=== PATIENT | female | born 1970 | race Caucasian/White ===

== ENCOUNTER 2017-06-15 08:59 | Day surgery (SDC) | payer MEDICARE, OTHER ==
[2017-06-11 13:09] VITALS: BMI 24.4
[~2017-06-15 08:59] MED LIST: LACTATED RINGERS 1,000 ML IV SCH
[2017-06-15 10:26] VITALS: TEMP 96.5
[2017-06-15] MEDS ORDERED: LIDOCAINE 1% 20 ML VIAL (10MG/ML) FOR IV START INTRADERMA ONE (10:27)
[2017-06-15] MEDS ORDERED: LIDOCAINE 1% INJ 10MG/ML (20 ML MDV) ONE (11:07)
[2017-06-15] MEDS ORDERED: PROPOFOL 10 MG/ML 20 ML VIAL IV ONE (11:07)
[2017-06-15] MEDS ORDERED: GLUCAGON 1 MG/ML VIAL ONE (11:07)
--- NOTE | 2017-06-15 11:21 | P.GSHP ---
History of Present Illness H&P Date: 06/15/17 Chief Complaint: GERD, colitis This a 47-year-old female referred . Aolndra Silva. Patient rents today for EGD colonoscopy. She's had issues with GERD and diarrhea. Past Medical History Past Medical History: Musculoskeletal Disorder, Seizure Disorder, Thyroid Disorder Additional Past Medical History / Comment(s): seizures as a child-nothing in years, cerebral palsy, recent hospitalization @[facility] for uncontrollable diarrhea, better now but still loose stools, bloating, burping, occasional vomiting History of Any Multi-Drug Resistant Organisms: None Reported Past Surgical History: Orthopedic Surgery Additional Past Surgical History / Comment(s): wrist surg & other surg. related to contractures Past Anesthesia/Blood Transfusion Reactions: No Reported Reaction, Family History of Problems w/ Anesthesia Additional Past Anesthesia/Blood Transfusion Reaction / Comment(s): mother had issues w/waking up from anesthesia Smoking Status: Never smoker - Past Family History Mother Family Medical History: Cancer Medications and Allergies Home Medications Medication Instructions Recorded Confirmed Type Cholecalciferol [Vitamin D3] 2,000 unit PO DAILY 06/11/17 06/15/17 History DULoxetine HCL [Cymbalta] 60 mg PO DAILY 06/11/17 06/15/17 History Fluocinonide 0.05% [Lidex 0.05% 15 applic TOPICAL DAILY PRN 06/11/17 06/15/17 History cream] Gabapentin [Neurontin] 100 mg PO BID 06/11/17 06/15/17 History Gabapentin [Neurontin] 300 mg PO BID 06/11/17 06/11/17 History HYDROcodone/APAP 7.5-325MG [[place] 1 tab PO Q8H PRN 06/11/17 06/11/17 History 7.5-325] Levothyroxine Sodium [Synthroid] 50 mcg PO DAILY 06/11/17 06/15/17 History Loratadine [Claritin] 10 mg PO DAILY 06/11/17 06/15/17 History Magnesium Gluconate [Magonate] 500 mg PO DAILY 06/11/17 06/15/17 History Naproxen [Naprosyn] 500 mg PO Q12HR 06/11/17 06/11/17 History tiZANidine [Zanaflex] 2 - 4 mg PO Q6HR PRN 06/11/17 06/11/17 History traZODone HCL 50 - 100 mg PO HS 06/11/17 06/15/17 History Allergies Allergy/AdvReac Type Severity Reaction Status Date / Time No Known Allergies Allergy Verified 06/11/17 11:46 Surgical - Exam Vital Signs Temp Pulse Resp BP Pulse Ox 96.5 F L 72 16 101/75 99 06/15/17 10:02 06/15/17 10:02 06/15/17 10:02 06/15/17 10:02 06/15/17 10:02 - General well developed, no distress - Eyes PERRL - ENT normal pinna - Neck no masses - Respiratory normal expansion - Cardiovascular Rhythm: regular - Abdomen Abdomen: soft, non tender Assessment and Plan Plan: GERD, diarrhea. We'll perform EGD colonoscopy.
--- NOTE | 2017-06-15 11:47 | P.OP ---
Date of Procedure: 06/15/17 Preoperative Diagnosis: GERD Colitis Postoperative Diagnosis: Antral gastritis Hiatal hernia Esophagitis Normal colon pathology pending rectal biopsy Procedure(s) Performed: EGD Colonoscopy Anesthesia: MAC Surgeon: Bertrand Ken Pathology: other (Antrum, esophagus, rectum) Condition: stable Disposition: PACU Description of Procedure: The patient's placed on the endoscopy table in the lateral position. She received IV sedation. The gastroscope placed oropharynx and passed in the esophagus and stomach. Scope was placed through the pylorus. The first and second portion of the duodenum. . Scope summer back the antrum and this appeared mildly inflamed. Biopsies performed. The scope was unretroflexed and remainder stomach appeared normal. There was a hiatal hernia visualized. The GE junction was at 40 cm. The distal esophagus appeared mildly inflamed a biopsies performed. The proximal esophagus appeared normal. Scope was withdrawn. Next digital rectal exam was performed which revealed a few external hemorrhoids. The flexible colonoscope was then placed patient anus passed throughout the colon. The ileocecal valve was not visualized well due to tortuosity valve. This point scope was brought back in the right colon appeared normal. Chest: . The descending and; was normal. Scope was then brought back the rectum and this appeared normal. However due the patient's symptoms of diarrhea a random biopsies performed. Scope was withdrawn for patient.
[2017-06-15 12:20] VITALS: BP 121/70; PULSE 88; RESP 18
== END 2017-06-15 12:38 | disposition home or self-care (01) ==
LOC: ORWHC2ENDO 08:59
PROVIDERS: ATTEND Surgery
DX: K21.0 Gastro-esophageal reflux disease with esophagitis (principal); K29.50 Unspecified chronic gastritis without bleeding; K29.60 Other gastritis without bleeding; K44.9 Diaphragmatic hernia without obstruction or gangrene; K52.9 Noninfective gastroenteritis and colitis, unspecified; K62.1 Rectal polyp; K64.4 Residual hemorrhoidal skin tags; G40.909 Epilepsy, unspecified, not intractable, without status epilepticus; E07.9 Disorder of thyroid, unspecified; Z79.899 Other long term (current) drug therapy
CPT/HCPCS: 81025; 88305; 88342; 45380; 43239; J1610; J2001; J2704

== ENCOUNTER 2020-02-01 16:21 | Emergency (ER) | payer MEDICARE, OTHER ==
[2020-02-01 16:32] VITALS: RESP 18; TEMP 98
--- NOTE | 2020-02-01 17:15 | ED ---
Extremity Problem HPI - General Chief complaint: Extremity Problem,Nontraumatic Stated complaint: swollen lower extremity Time Seen by Provider: 02/01/20 16:58 Source: patient, family Mode of arrival: wheelchair Limitations: physical limitation - History of Present Illness Initial comments: Patient is a 50-year-old female with history of cerebral palsy presenting to emergency Department with chief complaint of right leg swelling. Patient reports she typically ambulates on her knees with kneepads. Patient reports about 4 weeks ago as she was going from the couch the floor she accidentally dropped her usual. However, patient states about a week after she developed gradual swelling of the right knee along with edema in the right lower extremity as well. Patient states she saw her primary care about 2 weeks ago who gave her a prescription of steroids with no significant improvement. Patient reports the right knee is slightly more swollen than usual but the pain is only about a 2. States she has not been able to ambulate due to the swelling. Denies any night sweats fevers or chills at home. No previous history of blood clots. No cough shortness of breath nausea vomiting diarrhea. - Related Data Home Medications Medication Instructions Recorded Confirmed Cholecalciferol [Vitamin D3] 2,000 unit PO DAILY 06/11/17 06/15/17 DULoxetine HCL [Cymbalta] 60 mg PO DAILY 06/11/17 06/15/17 Fluocinonide 0.05% [Lidex 0.05% 15 applic TOPICAL DAILY PRN 06/11/17 06/15/17 cream] Gabapentin [Neurontin] 100 mg PO BID 06/11/17 06/15/17 Gabapentin [Neurontin] 300 mg PO BID 06/11/17 06/11/17 HYDROcodone/APAP 7.5-325MG [[place] 1 tab PO Q8H PRN 06/11/17 06/11/17 7.5-325] Levothyroxine Sodium [Synthroid] 50 mcg PO DAILY 06/11/17 06/15/17 Loratadine [Claritin] 10 mg PO DAILY 06/11/17 06/15/17 Magnesium Gluconate [Magonate] 500 mg PO DAILY 06/11/17 06/15/17 Naproxen [Naprosyn] 500 mg PO Q12HR 06/11/17 06/11/17 tiZANidine [Zanaflex] 2 - 4 mg PO Q6HR PRN 06/11/17 06/11/17 traZODone HCL 50 - 100 mg PO HS 06/11/17 06/15/17 Allergies Allergy/AdvReac Type Severity Reaction Status Date / Time No Known Allergies Allergy Verified 02/01/20 16:32 Review of Systems ROS Statement: Those systems with pertinent positive or pertinent negative responses have been documented in the HPI. ROS Other: All systems not noted in ROS Statement are negative. Past Medical History Past Medical History: Musculoskeletal Disorder, Seizure Disorder, Thyroid Disorder Additional Past Medical History / Comment(s): cerebral palsy History of Any Multi-Drug Resistant Organisms: None Reported Past Surgical History: Orthopedic Surgery Additional Past Surgical History / Comment(s): wrist surg & other surg. related to contractures Past Anesthesia/Blood Transfusion Reactions: No Reported Reaction, Family History of Problems w/ Anesthesia Additional Past Anesthesia/Blood Transfusion Reaction / Comment(s): mother had issues w/waking up from anesthesia Past Psychological History: No Psychological Hx Reported Smoking Status: Never smoker Past Alcohol Use History: None Reported Past Drug Use History: None Reported - Past Family History Mother Family Medical History: Cancer General Exam Limitations: physical limitation General appearance: alert, in no apparent distress Head exam: Present: atraumatic, normocephalic, normal inspection Eye exam: Present: normal appearance Pupils: Present: normal accommodation ENT exam: Present: normal exam Neck exam: Present: normal inspection, full ROM Respiratory exam: Present: normal lung sounds bilaterally Cardiovascular Exam: Present: regular rate, normal rhythm, normal heart sounds Extremities exam: Present: full ROM, tenderness (Mild tenderness with palpation. No pain out of proportion to touch or movement.), normal capillary refill, calf tenderness (Right lower extremity.), other (+2 dorsalis pedis and posterior tibialis.). Absent: normal inspection (+2 right lower extremity edema. Slightly erythematous right knee with mild to moderate swelling.) Course Vital Signs 02/01/20 02/01/20 16:23 18:28 Temperature 98.0 F Pulse Rate 104 H 94 Respiratory 18 18 Rate Blood Pressure 127/62 140/83 O2 Sat by Pulse 95 98 Oximetry Medical Decision Making - Medical Decision Making Patient is a 50-year-old female with history of cerebral palsy presenting to the emergency department with a chief complaint of right knee swelling. She ambulates using her knees with kneepads. This is benign one for many years. Her recent symptoms of the swelling with gradual increase of developed for the past 3 weeks. Possible traumatic injury about a week prior to onset of symptoms. CBC and CMP are unremarkable. CRP at 27. No pain out of proportion. Low suspicion for septic arthritis. Ultrasound was able to rule out a DVT. D-dimer obtained by accident. No chest pain or shortness of breath X-ray of the right knee shows a patellar tendon rupture. Patient was placed in a knee immobilizer. I spoke with neck pain from orthopedic associates who reviewed the images and states they will see her in an outpatient setting. Return parameters were thoroughly discussed patient is understanding and agreeable. Case discussed with physician. - Lab Data Result diagrams: 02/01/20 17:15 02/01/20 17:15 Lab Results 02/01/20 02/01/20 02/01/20 Range/Units 17:15 17:15 17:15 WBC 7.8 (3.8-10.6) k/uL RBC 3.89 (3.80-5.40) m/uL Hgb 11.2 L (11.4-16.0) gm/dL Hct 35.3 (34.0-46.0) % MCV 90.7 (80.0-100.0) fL MCH 28.9 (25.0-35.0) pg MCHC 31.8 (31.0-37.0) g/dL RDW 14.3 (11.5-15.5) % Plt Count 433 (150-450) k/uL Neutrophils % 57 % Lymphocytes % 28 % Monocytes % 7 % Eosinophils % 5 % Basophils % 1 % Neutrophils # 4.5 (1.3-7.7) k/uL Lymphocytes # 2.2 (1.0-4.8) k/uL Monocytes # 0.6 (0-1.0) k/uL Eosinophils # 0.4 (0-0.7) k/uL Basophils # 0.0 (0-0.2) k/uL Hypochromasia Slight D-Dimer 1.36 H (<0.60) mg/L FEU Sodium 139 (137-145) mmol/L Potassium 4.8 (3.5-5.1) mmol/L Chloride 102 (98-107) mmol/L Carbon Dioxide 29 (22-30) mmol/L Anion Gap 8 mmol/L BUN 11 (7-17) mg/dL Creatinine 0.66 (0.52-1.04) mg/dL Est GFR (CKD-EPI)AfAm >90 (>60 ml/min/1.73 sqM) Est GFR (CKD-EPI)NonAf >90 (>60 ml/min/1.73 sqM) Glucose 99 (74-99) mg/dL Calcium 9.3 (8.4-10.2) mg/dL Total Bilirubin 0.2 (0.2-1.3) mg/dL AST 25 (14-36) U/L ALT 13 (4-34) U/L Alkaline Phosphatase 86 (38-126) U/L C-Reactive Protein 27.7 H (<10.0) mg/L Total Protein 7.4 (6.3-8.2) g/dL Albumin 4.1 (3.5-5.0) g/dL Disposition Clinical Impression: Rupture of right patellar tendon Disposition: HOME SELF-CARE Condition: Stable Instructions (If sedation given, give patient instructions): Patella Tendon Repair (DC), Tendon Rupture (ED) Additional Instructions: Follow-up with orthopedics. Return to emergency department if symptoms worsen. Alternate between Tylenol and Motrin for pain control. Keep the leg elevated and apply ice compresses to minimize symptoms. Is patient prescribed a controlled substance at d/c from ED?: No Referrals: Alondra Silva DO [Primary Care Provider] - 1-2 days Jefry Qureshi MD [STAFF PHYSICIAN] - 1-2 days Time of Disposition: 19:08
[2020-02-01 17:25] LABS: Basophils % (A) 1 %; Eosinophils # (A) 0.4 k/uL (0-0.7); Eosinophils % (A) 5 %; HCT 35.3 % (34.0-46.0); HGB 11.2 gm/dL (11.4-16.0); Hypochromasia Slight; Lymphocytes # (A) 2.2 k/uL (1.0-4.8); Lymphocytes % (A) 28 %; MCH 28.9 pg (25.0-35.0); MCHC 31.8 g/dL (31.0-37.0); MCV 90.7 fL (80.0-100.0); Mean Platelet Volume 8.3; Monocytes # (A) 0.6 k/uL (0-1.0); Monocytes % (A) 7 %; Neutrophils # (A) 4.5 k/uL (1.3-7.7); Neutrophils % (A) 57 %; Platelet Count 433 k/uL (150-450); RBC 3.89 m/uL (3.80-5.40); RDW 14.3 % (11.5-15.5); WBC 7.8 k/uL (3.8-10.6)
[2020-02-01 17:38] LABS: ALT 13 U/L (4-34); AST 25 U/L (14-36); African American GFR (CKD) >90 (>60 ml/min/1.73 sqM); Albumin 4.1 g/dL (3.5-5.0); Alkaline Phosphatase 86 U/L (38-126); Anion Gap 8 mmol/L; Blood Urea Nitrogen 11 mg/dL (7-17); C Reactive Protein 27.7 mg/L (<10.0); Calcium 9.3 mg/dL (8.4-10.2); Carbon Dioxide 29 mmol/L (22-30); Chloride 102 mmol/L (98-107); Glucose 99 mg/dL (74-99); Non-African American GFR(CKD) >90 (>60 ml/min/1.73 sqM); Potassium 4.8 mmol/L (3.5-5.1); Sodium 139 mmol/L (137-145); Total Bilirubin 0.2 mg/dL (0.2-1.3); Total Protein 7.4 g/dL (6.3-8.2)
--- NOTE | 2020-02-01 17:42 | XR ---
EXAMINATION TYPE: XR knee complete RT DATE OF EXAM: 02/01/2020 COMPARISON: None HISTORY: Pain swelling redness x3 weeks no known injury TECHNIQUE: Three-view right knee FINDINGS: The patella is at the distal metaphyseal femur. A prominent soft tissue swelling is anterio r to the joint space. An acute fracture is not identified. Old Mary-Schlatter's changes may be pres ent. IMPRESSION: 1. Suspected patellar tendon rupture with prominent superficial soft tissue swelling.
[2020-02-01 18:29] VITALS: BP 140/83; PULSE 94
--- NOTE | 2020-02-01 18:29 | US ---
EXAMINATION TYPE: US venous doppler duplex LE RT DATE OF EXAM: 02/01/2020 6:23 PM COMPARISON: NONE CLINICAL HISTORY: swelling. Right knee swelling following recent fall SIDE PERFORMED: Right TECHNIQUE: The lower extremity deep venous system is examined utilizing real time linear array sonog rocio with graded compression, doppler sonography and color-flow sonography. VESSELS IMAGED: External Iliac Vein (EIV) Common Femoral Vein Deep Femoral Vein Greater Saphenous Vein * Femoral Vein Popliteal Vein Small Saphenous Vein * Proximal Calf Veins (* superficial vessels) Right Leg: Appears negative for DVT IMPRESSION: 1. Right lower extremity ultrasound negative for deep venous thrombosis.
== END 2020-02-01 19:24 | disposition home or self-care (01) ==
LOC: EC 16:21
DX: S76.111A Strain of right quadriceps muscle, fascia and tendon, initial encounter (principal); E07.9 Disorder of thyroid, unspecified; G80.9 Cerebral palsy, unspecified; Z79.890 Hormone replacement therapy; Z79.899 Other long term (current) drug therapy; X58.XXXA Exposure to other specified factors, initial encounter
CPT/HCPCS: 36415; 80053; 85025; 85379; 86140; 99284

== ENCOUNTER 2020-02-29 09:37 | Day surgery (SDC) | payer MEDICARE, OTHER ==
[2020-02-27 12:37] VITALS: BMI 25.2
[2020-02-29 10:16] VITALS: TEMP 98.2
[2020-02-29] MEDS ORDERED: LIDOCAINE 1% INJ 10MG/ML (20 ML MDV) ONE (11:14)
[2020-02-29] MEDS ORDERED: PROPOFOL 10 MG/ML 20 ML VIAL IV ONE (11:14)
--- NOTE | 2020-02-29 11:14 | P.GSHP ---
History of Present Illness H&P Date: 02/29/20 Chief Complaint: Epigastric pain, dysphagia This a 50-year-old female referred from Dr. Silva. Patient rents today for EGD. She's had complaints of epigastric pain and dysphagia. Past Medical History Past Medical History: GERD/Reflux, Musculoskeletal Disorder, Seizure Disorder, Thyroid Disorder Additional Past Medical History / Comment(s): cerebral palsy. LAST SEIZURE A CHILD History of Any Multi-Drug Resistant Organisms: None Reported Past Surgical History: Joint Replacement, Orthopedic Surgery Additional Past Surgical History / Comment(s): wrist surg & other surg. related to contractures. BILAT JOSE M Past Anesthesia/Blood Transfusion Reactions: No Reported Reaction, Family History of Problems w/ Anesthesia Additional Past Anesthesia/Blood Transfusion Reaction / Comment(s): mother had issues w/waking up from anesthesia Smoking Status: Never smoker - Past Family History Mother Family Medical History: Cancer Medications and Allergies Home Medications Medication Instructions Recorded Confirmed Type Cholecalciferol [Vitamin D3] 2,000 unit PO DAILY 06/11/17 02/29/20 History DULoxetine HCL [Cymbalta] 60 mg PO DAILY 06/11/17 02/29/20 History Fluocinonide 0.05% [Lidex 0.05% 15 applic TOPICAL DAILY PRN 06/11/17 02/29/20 History cream] Gabapentin [Neurontin] 100 mg PO BID 06/11/17 02/29/20 History Gabapentin [Neurontin] 300 mg PO BID 06/11/17 02/29/20 History HYDROcodone/APAP 7.5-325MG [[place] 1 tab PO Q8H PRN 06/11/17 02/29/20 History 7.5-325] Levothyroxine Sodium [Synthroid] 50 mcg PO DAILY 06/11/17 02/29/20 History Loratadine [Claritin] 10 mg PO DAILY 06/11/17 02/29/20 History Magnesium Gluconate [Magonate] 500 mg PO DAILY 06/11/17 02/29/20 History Naproxen [Naprosyn] 500 mg PO Q12HR 06/11/17 02/29/20 History tiZANidine [Zanaflex] 2 - 4 mg PO Q6HR PRN 06/11/17 02/29/20 History traZODone HCL 50 - 100 mg PO HS 06/11/17 02/29/20 History Allergies Allergy/AdvReac Type Severity Reaction Status Date / Time No Known Allergies Allergy Verified 02/29/20 09:53 Surgical - Exam Vital Signs Temp Pulse Resp BP Pulse Ox 98.2 F 86 16 118/67 100 02/29/20 10:08 02/29/20 10:08 02/29/20 10:08 02/29/20 10:08 02/29/20 10:08 - General well developed, well nourished, no distress - Eyes PERRL - ENT normal pinna - Neck no masses - Respiratory normal expansion - Cardiovascular Rhythm: regular - Abdomen Abdomen: soft, non tender Assessment and Plan Assessment: Epigastric pain, dysphagia. We'll perform EGD.
--- NOTE | 2020-02-29 11:25 | P.OP ---
Date of Procedure: 02/29/20 Preoperative Diagnosis: Epigastric pain Postoperative Diagnosis: Antral gastritis hiatal hernia Esophagitis Procedure(s) Performed: EGD Anesthesia: MAC Surgeon: Bertrand Ken Pathology: other (Antrum, esophagus) Condition: stable Disposition: PACU Description of Procedure: The patient's placed on the endoscopy table in the lateral position. She received IV sedation. The gastroscope placed oropharynx and passed in the esophagus and stomach. Scope was placed through the pylorus. The first and s econd portion of the duodenum appeared normal. Scope was then brought back the antrum and this was mildly inflamed. A biopsies performed. The scope was then retroflexed and there was a sliding hiatal hernia seen. The GE junction was at 38 cm. The distal esophagus had evidence of esophagitis with erosions. Several biopsies performed. The proximal esophagus appeared normal. Scope was withdra wn for patient.
[2020-02-29 12:01] VITALS: BP 130/60; PULSE 65; RESP 17
== END 2020-02-29 12:25 | disposition home or self-care (01) ==
LOC: ORWHC2ENDO 09:37
PROVIDERS: ATTEND Surgery
DX: K29.50 Unspecified chronic gastritis without bleeding (principal); K21.0 Gastro-esophageal reflux disease with esophagitis; K22.10 Ulcer of esophagus without bleeding; K44.9 Diaphragmatic hernia without obstruction or gangrene; E07.9 Disorder of thyroid, unspecified; G40.909 Epilepsy, unspecified, not intractable, without status epilepticus; G80.9 Cerebral palsy, unspecified; Z79.890 Hormone replacement therapy; Z79.899 Other long term (current) drug therapy; Z98.890 Other specified postprocedural states; Z96.643 Presence of artificial hip joint, bilateral; Z80.9 Family history of malignant neoplasm, unspecified
CPT/HCPCS: 81025; 88305; 88312; 84703; 43239; J2001; J2704

== ENCOUNTER 2020-11-28 07:43 | Day surgery (SDC) | payer MEDICARE, OTHER ==
[2020-11-26 15:20] VITALS: BMI 24.4
[~2020-11-28 07:43] MED LIST changes: +LIDOCAINE 1% (10MG/ML) FOR IV START INTRADERMA PRN
[2020-11-28 08:34] VITALS: TEMP 98
[2020-11-28] MEDS ORDERED: ONDANSETRON 4 MG/2 ML VIAL ONE (09:53)
[2020-11-28] MEDS ORDERED: ONDANSETRON 4 MG/2 ML VIAL IVP ONE (09:55)
[2020-11-28] MEDS ORDERED: PROPOFOL 10 MG/ML 20 ML VIAL IV ONE (09:56)
[2020-11-28] MEDS ORDERED: LIDOCAINE 1% INJ 10MG/ML (20 ML MDV) ONE (09:56)
--- NOTE | 2020-11-28 10:00 | P.GSHP ---
History of Present Illness H&P Date: 11/28/20 Chief Complaint: GERD, anemia, screening colon This a 50-year-old female who presents today for EGD and screening colonoscopy. She had issues with GERD and anemia. Past Medical History Past Medical History: Fibromyalgia, GERD/Reflux, Musculoskeletal Disorder, Rheumatoid Arthritis (RA), Seizure Disorder, Skin Disorder, Thyroid Disorder Additional Past Medical History / Comment(s): cerebral palsy(walks on knees with knee pads), LAST SEIZURE A CHILD, heartburn, constipation, psoriasis, "low blood"-caregiver not sure what is low, History of Any Multi-Drug Resistant Organisms: None Reported Past Surgical History: Joint Replacement, Orthopedic Surgery Additional Past Surgical History / Comment(s): contracture release in grioin area, rt hip replacement, partial left hip replacement,grwoth removed rt knee, Past Anesthesia/Blood Transfusion Reactions: Family History of Problems w/ Anesthesia Additional Past Anesthesia/Blood Transfusion Reaction / Comment(s): mother had issues w/waking up from anesthesia Smoking Status: Never smoker - Past Family History Mother Family Medical History: No Reported History Medications and Allergies Home Medications Medication Instructions Recorded Confirmed Type DULoxetine HCL [Cymbalta] 60 mg PO DAILY 06/11/17 11/28/20 History Fluocinonide 0.05% [Lidex 0.05% 15 applic TOPICAL DAILY PRN 06/11/17 11/28/20 History cream] Gabapentin [Neurontin] 300 mg PO BID 06/11/17 11/28/20 History HYDROcodone/APAP 7.5-325MG [[place] 1 tab PO Q8H PRN 06/11/17 11/28/20 History 7.5-325] Levothyroxine Sodium [Synthroid] 50 mcg PO DAILY 06/11/17 11/28/20 History Loratadine [Claritin] 10 mg PO DAILY 06/11/17 11/28/20 History traZODone HCL 100 mg PO HS 06/11/17 11/28/20 History ARIPiprazole [Abilify] 10 mg PO DAILY 11/26/20 11/28/20 History Ascorbic Acid [Vitamin C] 1,000 mg PO DAILY 11/26/20 11/28/20 History Black Cohosh 40 mg PO DAILY 11/26/20 11/28/20 History Ergocalciferol [Vitamin D2 (1250 1,250 mcg PO [place] 11/26/20 11/28/20 History Mcg = 78143 Iu)] Magnesium Oxide [Jade] 500 mg PO DAILY 11/26/20 11/28/20 History Multivitamins, Thera [Multivitamin 1 tab PO DAILY 11/26/20 11/28/20 History (formulary)] Omeprazole 20 mg PO BID 11/26/20 11/28/20 History Oxybutynin Chloride [Ditropan] 5 mg PO QAM 11/26/20 11/28/20 History Turmeric Root Extract [Turmeric] 500 mg PO DAILY 11/26/20 11/28/20 History Allergies Allergy/AdvReac Type Severity Reaction Status Date / Time No Known Allergies Allergy Verified 11/28/20 08:11 Surgical - Exam Vital Signs Temp Pulse Resp BP Pulse Ox 98.0 F 87 16 128/60 100 11/28/20 08:33 11/28/20 08:33 11/28/20 08:33 11/28/20 08:33 11/28/20 08:33 - General well developed, well nourished, no distress - Eyes PERRL - ENT normal pinna - Neck no masses - Respiratory normal expansion - Cardiovascular Rhythm: regular - Abdomen Abdomen: soft, non tender - Rectum Rectum: normal sphincter tone Assessment and Plan Assessment: GERD, anemia. We'll perform EGD and screening colonoscopy.
--- NOTE | 2020-11-28 10:17 | P.OP ---
Date of Procedure: 11/28/20 Preoperative Diagnosis: Anemia Screening colonoscopy Postoperative Diagnosis: Antral gastritis Procedure(s) Performed: EGD Colonoscopy Anesthesia: MAC Surgeon: Bertrand Ken Pathology: other (Antrum) Condition: stable Disposition: PACU Description of Procedure: Patient's placed on the endoscopy table in the lateral position. She received IV sedation. The gastroscope placed oropharynx passed in the esophagus into the stomach. Scope was placed through the pylorus. The first and second portion of the duodenum appeared normal. Scope was then brought back the antrum, this appeared mildly inflamed. A biopsies performed. Scope was unretroflexed and remainder of the stomach appeared normal. The GE junction was at 40 cm the distal esophagus appeared mildly inflamed and a biopsies performed. There was a small sliding hiatal hernia. The proximal esophagus appeared normal. Scope withdrawn for patient. Next digital rectal exam was performed which revealed no abnormalities. Flexible colonoscope was then placed patient anus passed with colon. The patient had a poor colon prep. The large amount liquid stool which limited view of the mucosa. The cecum and right colon appeared normal. Transverse colon appeared normal. In the descending; there is moderate diverticular changes. The scope was then brought back the rectum and this appeared normal. Scope withdrawn for patient. There is no evidence of any upper or lower GI bleed.
[2020-11-28 11:14] VITALS: BP 123/60; PULSE 80; RESP 20
== END 2020-11-28 11:14 | disposition home or self-care (01) ==
LOC: ORWHC2ENDO 07:43
PROVIDERS: ATTEND Surgery
DX: D64.9 Anemia, unspecified (principal); K44.9 Diaphragmatic hernia without obstruction or gangrene; K57.90 Diverticulosis of intestine, part unspecified, without perforation or abscess without bleeding; K29.50 Unspecified chronic gastritis without bleeding; K20.0 Eosinophilic esophagitis; M79.7 Fibromyalgia; K21.9 Gastro-esophageal reflux disease without esophagitis; M06.9 Rheumatoid arthritis, unspecified; Z86.69 Personal history of other diseases of the nervous system and sense organs; G80.9 Cerebral palsy, unspecified; L40.9 Psoriasis, unspecified; E07.9 Disorder of thyroid, unspecified; Z96.643 Presence of artificial hip joint, bilateral; Z98.890 Other specified postprocedural states; Z79.890 Hormone replacement therapy; Z79.899 Other long term (current) drug therapy; Z79.891 Long term (current) use of opiate analgesic
CPT/HCPCS: 81025; 88305; 84703; 45378; 43239; J2405; J2001; J2704

== ENCOUNTER 2021-01-09 10:04 | Day surgery (SDC) | payer MEDICARE, OTHER ==
[2021-01-06 13:44] VITALS: BMI 24.4
[~2021-01-09 10:04] MED LIST changes: -LIDOCAINE 1% (10MG/ML) FOR IV START INTRADERMA PRN
[2021-01-09 11:17] VITALS: TEMP 97.3
[2021-01-09] MEDS ORDERED: LIDOCAINE 1% INJ 10MG/ML (20 ML MDV) ONE (11:44)
[2021-01-09] MEDS ORDERED: PROPOFOL 10 MG/ML 20 ML VIAL IV ONE (11:44)
--- NOTE | 2021-01-09 11:47 | P.GSHP ---
History of Present Illness H&P Date: 01/09/21 Chief Complaint: GERD, change in bowel habits Is a 50-year-old female who presents today for EGD and colonoscopy. She is evidence of GERD and change in bowel habits and increasing constipation. Past Medical History Past Medical History: Fibromyalgia, GERD/Reflux, Musculoskeletal Disorder, Rheumatoid Arthritis (RA), Seizure Disorder, Skin Disorder, Thyroid Disorder Additional Past Medical History / Comment(s): cerebral palsy(walks on knees with knee pads), LAST SEIZURE A CHILD, heartburn, constipation, psoriasis, "low blood"-caregiver not sure what is low, History of Any Multi-Drug Resistant Organisms: None Reported Past Surgical History: Joint Replacement, Orthopedic Surgery Additional Past Surgical History / Comment(s): contracture release in groin area, rt hip replacement, partial left hip replacement,growth removed rt knee, Past Anesthesia/Blood Transfusion Reactions: Family History of Problems w/ Anesthesia Additional Past Anesthesia/Blood Transfusion Reaction / Comment(s): mother had issues w/waking up from anesthesia Smoking Status: Never smoker - Past Family History Mother Family Medical History: No Reported History Medications and Allergies Home Medications Medication Instructions Recorded Confirmed Type DULoxetine HCL [Cymbalta] 60 mg PO DAILY 06/11/17 01/06/21 History Gabapentin [Neurontin] 300 mg PO BID 06/11/17 01/06/21 History HYDROcodone/APAP 7.5-325MG [[place] 1 tab PO TID 06/11/17 01/06/21 History 7.5-325] Loratadine [Claritin] 10 mg PO DAILY 06/11/17 01/06/21 History traZODone HCL 100 mg PO HS 06/11/17 01/06/21 History Ascorbic Acid [Vitamin C] 1,000 mg PO DAILY 11/26/20 01/06/21 History Black Cohosh 80 mg PO DAILY 11/26/20 01/06/21 History Ergocalciferol [Vitamin D2 (1250 1,250 mcg PO [place] 11/26/20 01/06/21 History Mcg = 26840 Iu)] Magnesium Oxide [Jade] 500 mg PO DAILY 11/26/20 01/06/21 History Multivitamins, Thera [Multivitamin 1 tab PO DAILY 11/26/20 01/06/21 History (formulary)] Omeprazole 20 mg PO BID 11/26/20 01/06/21 History Oxybutynin Chloride [Ditropan] 5 mg PO QAM 11/26/20 01/06/21 History Turmeric Root Extract [Turmeric] 500 mg PO DAILY 11/26/20 01/06/21 History ARIPiprazole [Abilify] 10 mg PO DAILY 01/06/21 01/06/21 History Betamethasone Dipropionate 1 applic TOPICAL DAILY 01/06/21 01/06/21 History [Betamethasone Dipropionate 0.05%] Cyclobenzaprine [Flexeril] 5 mg PO TID 01/06/21 01/06/21 History Fluocinonide 0.05% [Lidex 0.05% 15 applic TOPICAL DAILY 01/06/21 01/06/21 History cream] Levothyroxine Sodium [Synthroid] 50 mcg PO DAILY 01/06/21 01/06/21 History Allergies Allergy/AdvReac Type Severity Reaction Status Date / Time No Known Allergies Allergy Verified 01/09/21 10:39 Surgical - Exam Vital Signs Temp Pulse Resp BP 97.3 F L 84 16 142/63 01/09/21 11:00 01/09/21 11:00 01/09/21 11:00 01/09/21 11:00 History of cerebral palsy - General well developed, well nourished, no distress - Eyes PERRL - ENT normal pinna - Neck no masses - Respiratory normal expansion - Cardiovascular Rhythm: regular - Abdomen Abdomen: soft, non tender Assessment and Plan Assessment: GERD. We'll perform EGD History change in bowel habits, conservation we'll perform colonoscopy
--- NOTE | 2021-01-09 12:16 | P.OP ---
Date of Procedure: 01/09/21 Preoperative Diagnosis: GERD Constipation Postoperative Diagnosis: Antral gastritis Moderate sliding hiatal hernia Erosive esophagitis Procedure(s) Performed: EGD Colonoscopy Anesthesia: MAC Surgeon: Bertrand Ken Pathology: other (Antrum, esophagus) Condition: stable Disposition: PACU Description of Procedure: The patient's placed on the endoscopy table in the lateral position. She received IV sedation. The gastroscope placed oropharynx passed in the esophagus into the stomach. The scope was placed through the pylorus. The first and second portion of the duodenum appeared normal. Scope summer back and the antrum this is minimally inflamed a biopsies performed. The scope was unretroflexed and remainder the stomach appeared normal. There was a moderate size sliding hiatal hernia. The GE junction was at 38 cm. The distal esophagus had erosive esophagitis. This was biopsied. The proximal esophagus appeared normal. Scope was withdrawn for patient. Next digital rectal exam was performed which revealed no abnormalities. The flexible colonoscope was then placed patient anus passed rotator colon. The patient had a poor colon prep which limited the view of the mucosa. The colon was quite tortuous. The cecum was examined. The cecum, ascending and transverse colon appeared normal. The descending colon appeared normal. The sigmoid colon was very tortuous and had scattered diverticula. The scope was then brought back the rectum and this appeared normal. Scope withdrawn for patient.
[2021-01-09 13:13] VITALS: BP 147/74; PULSE 79; RESP 14
== END 2021-01-09 13:23 | disposition home or self-care (01) ==
LOC: ORWHC2ENDO 10:04
PROVIDERS: ATTEND Surgery
DX: K29.50 Unspecified chronic gastritis without bleeding (principal); K22.10 Ulcer of esophagus without bleeding; K59.00 Constipation, unspecified; K44.9 Diaphragmatic hernia without obstruction or gangrene; R19.4 Change in bowel habit; Q43.8 Other specified congenital malformations of intestine; M79.7 Fibromyalgia; K21.9 Gastro-esophageal reflux disease without esophagitis; M06.9 Rheumatoid arthritis, unspecified; G40.909 Epilepsy, unspecified, not intractable, without status epilepticus; E07.9 Disorder of thyroid, unspecified; G80.9 Cerebral palsy, unspecified; L40.9 Psoriasis, unspecified; Z98.890 Other specified postprocedural states; Z96.641 Presence of right artificial hip joint; Z79.891 Long term (current) use of opiate analgesic; Z79.899 Other long term (current) drug therapy; Z79.890 Hormone replacement therapy
CPT/HCPCS: 81025; 88305; 88312; 45378; 43239; J2001; J2704

== ENCOUNTER 2021-02-05 10:29 | Inpatient (IN) | payer MEDICARE, OTHER ==
[2021-01-30 14:04] VITALS: BMI 25.4
[~2021-02-05 10:29] MED LIST changes: +ACETAMINOPHEN TAB 500 MG TAB PO PRN; +DEXAMETHASONE SOD PHOSPHATE 4 MG/ML 1 ML VIAL IV ONE; +HEPARIN SODIUM,PORCINE/PF 5,000 UNIT/0.5 ML SYRINGE SQ PRN; -LACTATED RINGERS 1,000 ML IV SCH; +ONDANSETRON 4 MG/2 ML VIAL IVP ONE
[2021-02-05] MEDS ORDERED: LIDOCAINE 1% (10MG/ML) FOR IV START INTRADERMA ONE (11:20)
[2021-02-05] MEDS: LACTATED RINGERS 1,000 ML IV SCH (11:20)
--- NOTE | 2021-02-05 12:30 | P.GSHP ---
History of Present Illness H&P Date: 02/05/21 Chief Complaint: GERD this a 51-year-old female referred from Dr. Alondra Silva.The patient has had long-standing problems with reflux esophagitis. The patient underwent recent EGD is found have evidence of esophagitis. Patient has been well informed on the procedure of laparoscopic Titus fundoplication. The patient is aware the risk of the conversion to the open procedure, risk of injury to the stomach, liver and spleen. The patient is also a risk of recurrent GERD and dysphagia symptoms. The patient understands there is a postoperative diet of full liquids for 2 weeks after surgery. Past Medical History Past Medical History: Fibromyalgia, GERD/Reflux, Musculoskeletal Disorder, Rheumatoid Arthritis (RA), Seizure Disorder, Skin Disorder, Thyroid Disorder Additional Past Medical History / Comment(s): cerebral palsy(walks on knees with knee pads), LAST SEIZURE A CHILD, heartburn, constipation, psoriasis, "low blood"-caregiver not sure what is low, History of Any Multi-Drug Resistant Organisms: None Reported Past Surgical History: Joint Replacement, Orthopedic Surgery Additional Past Surgical History / Comment(s): contracture release in groin area, rt hip replacement, partial left hip replacement,growth removed rt knee, Past Anesthesia/Blood Transfusion Reactions: Family History of Problems w/ Anesthesia Additional Past Anesthesia/Blood Transfusion Reaction / Comment(s): mother had issues w/waking up from anesthesia Smoking Status: Never smoker - Past Family History Mother Family Medical History: No Reported History Medications and Allergies Home Medications Medication Instructions Recorded Confirmed Type DULoxetine HCL [Cymbalta] 60 mg PO DAILY 06/11/17 01/30/21 History Gabapentin [Neurontin] 300 mg PO BID 06/11/17 01/30/21 History HYDROcodone/APAP 7.5-325MG [[place] 1 tab PO TID 06/11/17 01/30/21 History 7.5-325] Loratadine [Claritin] 10 mg PO DAILY 06/11/17 01/30/21 History traZODone HCL 100 mg PO HS 06/11/17 01/30/21 History Ascorbic Acid [Vitamin C] 1,000 mg PO DAILY 11/26/20 01/30/21 History Black Cohosh 80 mg PO DAILY 11/26/20 01/30/21 History Ergocalciferol [Vitamin D2 (1250 1,250 mcg PO [place] 11/26/20 01/30/21 History Mcg = 94696 Iu)] Magnesium Oxide [Jade] 500 mg PO DAILY 11/26/20 01/30/21 History Multivitamins, Thera [Multivitamin 1 tab PO DAILY 11/26/20 01/30/21 History (formulary)] Omeprazole 20 mg PO BID 11/26/20 01/30/21 History Oxybutynin Chloride [Ditropan] 5 mg PO QAM 11/26/20 01/30/21 History Turmeric Root Extract [Turmeric] 500 mg PO DAILY 11/26/20 01/30/21 History ARIPiprazole [Abilify] 10 mg PO DAILY 01/06/21 01/30/21 History Betamethasone Dipropionate 1 applic TOPICAL DAILY 01/06/21 01/30/21 History [Betamethasone Dipropionate 0.05%] Cyclobenzaprine [Flexeril] 5 mg PO TID 01/06/21 01/30/21 History Fluocinonide 0.05% [Lidex 0.05% 15 applic TOPICAL DAILY 01/06/21 01/30/21 History cream] Levothyroxine Sodium [Synthroid] 50 mcg PO DAILY 01/06/21 01/30/21 History Sulfamethoxazole/Trimethoprim 1 each PO BID 01/30/21 01/30/21 History [Bactrim DS 800-160 mg] Allergies Allergy/AdvReac Type Severity Reaction Status Date / Time No Known Allergies Allergy Verified 02/05/21 11:27 Surgical - Exam Vital Signs Temp Pulse Resp BP Pulse Ox 97.9 F 96 16 119/56 99 02/05/21 11:20 02/05/21 11:20 02/05/21 11:20 02/05/21 11:20 02/05/21 11:20 - General well developed, well nourished - Eyes PERRL - ENT normal pinna - Neck no masses - Respiratory normal expansion - Cardiovascular Rhythm: regular - Abdomen Abdomen: soft, non tender Assessment and Plan Assessment: GERD. We'll perform laparoscopic Titus fundal plication.
[2021-02-05] MEDS ORDERED: PROPOFOL 10 MG/ML 20 ML VIAL IV ONE (13:03)
[2021-02-05] MEDS ORDERED: fentaNYL (PF) 50 MCG/ML 2 ML AMP ONE (13:03)
[2021-02-05] MEDS ORDERED: NEOSTIGMINE 1 MG/ML 10 ML VIAL ONE (13:03)
[2021-02-05] MEDS ORDERED: LIDOCAINE 1% INJ 10MG/ML (20 ML MDV) ONE (13:03)
[2021-02-05] MEDS ORDERED: MIDAZOLAM 2 MG/2 ML VIAL ONE (13:03)
[2021-02-05] MEDS ORDERED: ROCURONIUM 10 MG/ML (5 ML VIAL) IV ONE (13:03)
[2021-02-05] MEDS ORDERED: GLYCOPYRROLATE 0.2 MG/ML 2 ML VIAL ONE (13:03)
[2021-02-05] MEDS ORDERED: BUPIVACAINE (PF) 0.5% 30 ML VIAL SQ ONE (13:29)
[2021-02-05] MEDS ORDERED: LACTATED RINGERS 1,000 ML IV ONE ×2 (13:39→15:31)
[2021-02-05] MEDS ORDERED: ONDANSETRON 4 MG/2 ML VIAL IVP PRN (14:19)
--- NOTE | 2021-02-05 14:27 | P.OP ---
Date of Procedure: 02/05/21 Preoperative Diagnosis: GERD Postoperative Diagnosis: gerd Procedure(s) Performed: Laparoscopic Titus fundoplication Anesthesia: OSMANY Surgeon: Bertrand Ken Estimated Blood Loss (ml): 10 Pathology: none sent Condition: stable Disposition: PACU Description of Procedure: Jodihe patient was placed on the operating table in the supine position. The patient received general anesthesia. And was placed in dorsal lithotomy position. The patient was prepped and draped in the usual sterile fashion. The skin incision sites were anesthetized with 1% local Xylocaine. The skin was incised in the left periumbilical area and then using a blade less 5 mm trocar under direct visualization panel cavity was entered. After adequate insufflation the laparoscope was then placed into the peritoneal cavity. Next a 5 mm trochars placed in the right epigastric position. Another 5 millimeter trocar the right lateral position. Another 5 millimeter trocar in the left lateral position a 5 mm trocar is placed in the left epigastric position. And then the initial 5 mm trocar was exchanged for a 10 mm trocar. The left lateral lobe liver was retracted. The hernia was seen. The crural defect was then dissected using the Harmonic scissors device. A360 crural dissection was performed the esophagus stomach was reduced back into the peritoneal Cavity. The crural defect was then closed using 2-0 Ethibond suture. Next the fundus of the stomach was mobilized using the [place] scissors device. and then a 58- Cam[place]onian bougie dilator was placed oropharynx passed into the esophagus and stomach the fundal plication wrap was then performed by grasping the fundus post eriorly and bringing it around the esophagus and stomach fundoplication was then performed using 2-0 Ethibond suture.a 180 wrap was performed. Care was taken that the fundal location rested over top of the intra-abdominal esophagus. There was no injury seen to the stomach or esophagus. The dilator was then withdrawn. The abdomen was irrigated there is no bleeding seen. The trochars were then withdrawn and then skin incision sites were closed using 3-0 Monocryl suture Steri-Strips are applied. Patient thought procedure well and sent to recovery room in stable condition.
[2021-02-05] MEDS: HYDROmorphone 0.5 MG/0.5 ML SYRINGE IVP PRN ×3 (14:32→15:20)
[2021-02-05] MEDS ORDERED: KETOROLAC 15 MG/ML 1 ML VIAL IVP ONE (15:00)
[2021-02-05] MEDS: METOCLOPRAMIDE 5 MG/ML 2 ML VIAL IVP SCH (18:09)
[2021-02-05] MEDS: D5-0.45% NACL WITH KCL 20MEQ/L 1,000 ML IV SCH (18:10)
[2021-02-05] MEDS: FAMOTIDINE 20 MG/2 ML VIAL IV SCH (22:44)
[2021-02-05] MEDS: HYDROmorphone 1 MG/ML 1 ML SYRINGE IVP PRN (22:44)
[2021-02-06] MEDS: METOCLOPRAMIDE 5 MG/ML 2 ML VIAL IVP SCH ×5 (01:45→22:58)
[2021-02-06] MEDS: HYDROmorphone 1 MG/ML 1 ML SYRINGE IVP PRN ×4 (05:34→21:07)
[2021-02-06] MEDS: D5-0.45% NACL WITH KCL 20MEQ/L 1,000 ML IV SCH ×4 (05:35→19:56)
[2021-02-06] MEDS: ENOXAPARIN 40 MG/0.4 ML SYRINGE SQ SCH (09:13)
[2021-02-06] MEDS: FAMOTIDINE 20 MG/2 ML VIAL IV SCH ×2 (09:13→19:58)
--- NOTE | 2021-02-06 09:57 | FL ---
Single contrast esophagram EXAMINATION TYPE: FL esophagus cervic/pharynx DATE OF EXAM: 02/06/2021 8:41 AM COMPARISON: NONE CLINICAL HISTORY: Status post Cristobal fundoplication The patient ingested contrast without difficulty or delay. Noted are changes of Cristobal fundoplicatio n. The esophagus is dilated with complete obstruction noted at the GE junction despite observing unde r fluoroscopy for at least 5 minutes. IMPRESSION: Post-surgical change of Cristobal fundoplication with complete obstruction noted at the GE j unction.
--- NOTE | 2021-02-06 13:00 | P.PN ---
Subjective Progress Note Date: 02/06/21 CHIEF COMPLAINT: GERD HISTORY OF PRESENT ILLNESS: Patient is status post laparoscopic Titus fundoplication. Her upper GI shows postsurgical change of Titus fundoplication with complete obstruction noted at the GE junction. Patient will be started on IV dexamethasone. She reports that her pain is controlled with pain medication. Denies any nausea or vomiting. Denies passing gas or bowel movements. Afebrile. PHYSICAL EXAM: VITAL SIGNS: Reviewed. GENERAL: Well-developed in no acute distress. HEENT: No sclera icterus. Extraocular movements grossly intact. Moist buccal mucosa. Head is atraumatic, normocephalic. ABDOMEN: Soft. Nondistended. Incision sites clean dry and intact NEUROLOGIC: Alert and oriented. Cranial nerves II through XII grossly intact. ASSESSMENT: 1. GERD status post laparoscopic Titus fundoplication 2. Complete obstruction at GE junction noted on upper GI 3. History of cerebral palsy PLAN: -Start dexamethasone 4 mg IV every 6 hours for complete obstruction at GE junction -Continue IV fluids -Continue pain medication as needed -Consult placed for medicine service for medical management -GI prophylaxis Pepcid and DVT prophylaxis Lovenox Physician Outside Sales Inspector note has been reviewed by physician. Signing provider agrees with the documented findings, assessment, and plan of care. Objective - Vital Signs Vital signs: Vital Signs Temp 98.5 F 02/06/21 07:53 Pulse 67 02/06/21 09:14 Resp 16 02/06/21 09:14 BP 103/58 02/06/21 07:53 Pulse Ox 90 L 02/06/21 07:53 Intake & Output 02/05/21 02/06/21 02/06/21 18:59 06:59 18:59 Intake Total 2000 Output Total 75 Balance 1925 Weight 58.967 kg Intake: IV 1999 Output: Estimated Blood Loss 75 Other: Voiding Method Diaper Diaper # Voids 3
[2021-02-06] MEDS: DEXAMETHASONE SOD PHOSPHATE 4 MG/ML 1 ML VIAL IV SCH ×3 (13:03→22:58)
[2021-02-06] MEDS: LACTATED RINGERS 1,000 ML IV SCH (17:57)
[2021-02-07] MEDS: HYDROmorphone 1 MG/ML 1 ML SYRINGE IVP PRN ×2 (04:05→08:45)
[2021-02-07] MEDS: LACTATED RINGERS 1,000 ML IV SCH (05:26)
[2021-02-07] MEDS: METOCLOPRAMIDE 5 MG/ML 2 ML VIAL IVP SCH ×3 (05:26→17:32)
[2021-02-07] MEDS: DEXAMETHASONE SOD PHOSPHATE 4 MG/ML 1 ML VIAL IV SCH ×3 (05:26→17:32)
[2021-02-07] MEDS: ENOXAPARIN 40 MG/0.4 ML SYRINGE SQ SCH (07:47)
[2021-02-07] MEDS: FAMOTIDINE 20 MG/2 ML VIAL IV SCH ×2 (07:47→22:18)
--- NOTE | 2021-02-07 08:44 | P.CONS ---
History of Present Illness - Reason for Consult Consult date: 02/06/21 medical eval - History of Present Illness Linh Rios is a 51 yo F admitted for so fundoplication. She is POD#1 today, denies nausea or vomiting, is feeling bloated and denies passing gas. Denies headache, chest pressure, shortness of breath Review of Systems All systems: negative Constitutional: Denies chills, Denies fever Eyes: denies blurred vision, denies pain Ears, nose, mouth and throat: Denies headache, Denies sore throat Cardiovascular: Denies chest pain, Denies shortness of breath Respiratory: Denies cough Gastrointestinal: Reports bloating, Denies abdominal pain, Denies diarrhea, Denies nausea, Denies vomiting Genitourinary: Denies dysuria, Denies hematuria Musculoskeletal: Denies myalgias Integumentary: Denies pruritus, Denies rash Neurological: Denies numbness, Denies weakness Psychiatric: Denies anxiety, Denies depression Endocrine: Denies fatigue, Denies weight change Past Medical History Past Medical History: Fibromyalgia, GERD/Reflux, Musculoskeletal Disorder, Rheumatoid Arthritis (RA), Seizure Disorder, Skin Disorder, Thyroid Disorder Additional Past Medical History / Comment(s): cerebral palsy(walks on knees with knee pads), LAST SEIZURE A CHILD, heartburn, constipation, psoriasis, "low blood"-caregiver not sure what is low, History of Any Multi-Drug Resistant Organisms: None Reported Past Surgical History: Joint Replacement, Orthopedic Surgery Additional Past Surgical History / Comment(s): contracture release in groin area, rt hip replacement, partial left hip replacement,growth removed rt knee, Past Anesthesia/Blood Transfusion Reactions: Family History of Problems w/ Anesthesia Additional Past Anesthesia/Blood Transfusion Reaction / Comm: mother had issues w/waking up from anesthesia Past Psychological History: Depression Smoking Status: Never smoker Past Alcohol Use History: Rare Past Drug Use History: None Reported - Past Family History Mother Family Medical History: No Reported History Medications and Allergies Home Medications Medication Instructions Recorded Confirmed Type DULoxetine HCL [Cymbalta] 60 mg PO DAILY 06/11/17 01/30/21 History Gabapentin [Neurontin] 300 mg PO BID 06/11/17 01/30/21 History HYDROcodone/APAP 7.5-325MG [[place] 1 tab PO TID 06/11/17 01/30/21 History 7.5-325] Loratadine [Claritin] 10 mg PO DAILY 06/11/17 01/30/21 History traZODone HCL 100 mg PO HS 06/11/17 01/30/21 History Ascorbic Acid [Vitamin C] 1,000 mg PO DAILY 11/26/20 01/30/21 History Black Cohosh 80 mg PO DAILY 11/26/20 01/30/21 History Ergocalciferol [Vitamin D2 (1250 1,250 mcg PO [place] 11/26/20 01/30/21 History Mcg = 29475 Iu)] Magnesium Oxide [Jade] 500 mg PO DAILY 11/26/20 01/30/21 History Multivitamins, Thera [Multivitamin 1 tab PO DAILY 11/26/20 01/30/21 History (formulary)] Omeprazole 20 mg PO BID 11/26/20 01/30/21 History Oxybutynin Chloride [Ditropan] 5 mg PO QAM 11/26/20 01/30/21 History Turmeric Root Extract [Turmeric] 500 mg PO DAILY 11/26/20 01/30/21 History ARIPiprazole [Abilify] 10 mg PO DAILY 01/06/21 01/30/21 History Betamethasone Dipropionate 1 applic TOPICAL DAILY 01/06/21 01/30/21 History [Betamethasone Dipropionate 0.05%] Cyclobenzaprine [Flexeril] 5 mg PO TID 01/06/21 01/30/21 History Fluocinonide 0.05% [Lidex 0.05% 15 applic TOPICAL DAILY 01/06/21 01/30/21 History cream] Levothyroxine Sodium [Synthroid] 50 mcg PO DAILY 01/06/21 01/30/21 History Sulfamethoxazole/Trimethoprim 1 each PO BID 01/30/21 01/30/21 History [Bactrim DS 800-160 mg] Allergies Allergy/AdvReac Type Severity Reaction Status Date / Time No Known Allergies Allergy Verified 02/05/21 11:27 Physical Exam Vitals: Vital Signs Temp Pulse Resp BP Pulse Ox 02/07/21 08:00 98.5 F 69 18 132/79 91 L 02/07/21 01:57 98.0 F 52 L 19 91 L 02/06/21 20:00 96 02/06/21 14:00 98.1 F 59 L 16 97/50 93 L 02/06/21 09:14 67 16 Intake and Output 02/06/21 02/07/21 02/07/21 22:59 06:59 14:59 Other: Voiding Method Diaper # Voids 5 6 Weight 58.967 kg General: well developed, well nourished, NAD HEENT: normocephalic, atraumatic, mucus membranes moist Neck: supple, no thyromegaly no JVD CV: RRR, no murmur Lungs: normal effort, clear throughout Abd: soft, nontender, non distended Neuro: alert and oriented x3, no focal deficits Skin: warm and dry Assessment and Plan Plan: 1. GERD s/p so fundoplication. Continue protonix, management per surgery. Pain control 2. Mood disorder. Resume abilify and cymbalta 3. Hypothyroid. Resume synthroid 4. Insomina. Trazodone DVT prophylaxis lovenox
[2021-02-07 11:05] LABS: Basophils # (A) 0 X 10*3/uL (0.00-0.10); Basophils % (A) 0 %; Eosinophils # (A) 0 X 10*3/uL (0.04-0.35); Eosinophils % (A) 0 %; HCT 27.9 % (37.2-46.3); Lymphocytes # (A) 1.11 X 10*3/uL (0.90-5.00); Lymphocytes % (A) 14.3 %; MCH 22.3 pg (27.0-32.0); MCHC 28.7 g/dL (32.0-37.0); MCV 77.9 fL (80.0-97.0); Mean Platelet Volume 11.8 fL (9.5-12.2); Monocytes # (A) 0.42 X 10*3/uL (0.20-1.00); Monocytes % (A) 5.4 %; Neutrophils # (A) 6.22 X 10*3/uL (1.80-7.70); Neutrophils % (A) 79.9 %; Platelet Count 509 X 10*3/uL (140-440); RBC 3.58 X 10*6/uL (4.10-5.20); RDW 19.3 % (11.5-14.5); WBC 7.78 X 10*3/uL (4.50-10.00)
[2021-02-07] MEDS: LORATADINE 10 MG TAB PO SCH (11:21)
[2021-02-07] MEDS: PANTOPRAZOLE 40 MG TABLET PO SCH ×2 (11:21→22:02)
[2021-02-07] MEDS: DULoxetine HCL 60 MG CAPSULE.DR PO SCH (11:21)
[2021-02-07] MEDS: GABAPENTIN 300 MG CAP PO SCH ×2 (11:21→22:01)
[2021-02-07] MEDS: OXYBUTYNIN CHLORIDE 5 MG TAB PO SCH (11:21)
[2021-02-07] MEDS: CYCLOBENZAPRINE 5 MG TAB PO SCH ×3 (11:21→22:02)
[2021-02-07] MEDS: ARIPiprazole 10 MG TAB PO SCH (11:21)
[2021-02-07] MEDS ORDERED: LORazepam 1 MG TAB PO PRN (11:37)
[2021-02-07] MEDS ORDERED: diazePAM 5 MG TAB PO STA (11:37)
[2021-02-07 11:48] LABS: African American GFR (CKD) 116.3 (60.0-200.0); Anion Gap 5.6 mmol/L (4.00-12.00); BUN/Creat Ratio 8.57 Ratio (12.00-20.00); Carbon Dioxide 26.4 mmol/L (21.6-31.8); Non-African American GFR(CKD) 100.3 (60.0-200.0); Potassium 5.4 mmol/L (3.5-5.5)
[2021-02-07] MEDS ORDERED: LORazepam 2 MG/ML INJ IV PRN (11:50)
[2021-02-07] MEDS: D5-0.45% NACL WITH KCL 20MEQ/L 1,000 ML IV SCH (12:54)
[2021-02-07] MEDS: LORazepam 2 MG/ML INJ IV PRN (13:02)
--- NOTE | 2021-02-07 13:53 | P.PN ---
Subjective Progress Note Date: 02/07/21 CHIEF COMPLAINT: GERD HISTORY OF PRESENT ILLNESS: Patient is status post laparoscopic Titus fundoplication. Her upper GI shows postsurgical change of Titus fundoplication with complete obstruction noted at the GE junction. Patient will be started on IV dexamethasone yesterday. Patient reports that her pain is better today. Her pain and nausea have improved. She is passing gas. Denies any nausea or vomiting. Afebrile. WBC 7.78 hemoglobin 8.0 platelets 509 potassium 5.4 creatinine 0.7 Patient seen and examined with Dr. isabel PHYSICAL EXAM: VITAL SIGNS: Reviewed. GENERAL: Well-developed in no acute distress. HEENT: No sclera icterus. Extraocular movements grossly intact. Moist buccal mucosa. Head is atraumatic, normocephalic. ABDOMEN: Soft. Nondistended. Incision sites clean dry and intact NEUROLOGIC: Alert and oriented. Cranial nerves II through XII grossly intact. ASSESSMENT: 1. GERD status post laparoscopic Titus fundoplication 2. Complete obstruction at GE junction noted on upper GI 3. History of cerebral palsy PLAN: -Start Titus clear liquid diet -Continue dexamethasone 4 mg IV every 6 hours for complete obstruction at GE junction -Continue IV fluids -Remove potassium from IV fluids due to potassium of 5.4 -Continue pain medication as needed -GI prophylaxis Pepcid and DVT prophylaxis Lovenox Physician Playground Aide note has been reviewed by physician. Signing provider agrees with the documented findings, assessment, and plan of care. Objective - Vital Signs Vital signs: Vital Signs Temp 98.5 F 02/07/21 08:00 Pulse 69 02/07/21 08:00 Resp 18 02/07/21 08:00 BP 132/79 02/07/21 08:00 Pulse Ox 91 L 02/07/21 08:00 Intake & Output 02/06/21 02/07/21 02/07/21 18:59 06:59 18:59 Intake Total 750 Balance 750 Weight 58.967 kg Intake: Intake, IV Titration 750 Amount D5-0.45% NaCl with KCl 750 20Meq/l 1,000 ml @ 125 mls/hr IV .Q8H [facility] Rx#: [id number] Other: Voiding Method Diaper Diaper # Voids 5 6 - Labs CBC & Chem 7: 02/07/21 07:10 02/07/21 07:10 Labs: Abnormal Lab Results - Last 24 Hours (Table) 02/07/21 02/07/21 Range/Units 07:10 07:10 RBC 3.58 L (4.10-5.20) X 10*6/uL Hgb 8.0 L (12.0-15.0) g/dL Hct 27.9 L (37.2-46.3) % MCV 77.9 L (80.0-97.0) fL MCH 22.3 L (27.0-32.0) pg MCHC 28.7 L (32.0-37.0) g/dL RDW 19.3 H (11.5-14.5) % Plt Count 509 H (140-440) X 10*3/uL Eosinophils # 0 L (0.04-0.35) X 10*3/uL BUN 6.0 L (9.0-27.0) mg/dL BUN/Creatinine Ratio 8.57 L (12.00-20.00) Ratio
--- NOTE | 2021-02-07 15:59 | P.PN ---
Subjective Progress Note Date: 02/07/21 Linh Rios is a 51 yo F admitted for os fundoplication. She is POD#1 today, denies nausea or vomiting, is feeling bloated and denies passing gas. Denies headache, chest pressure, shortness of breath 02/07/2021 maintained on IV fluids, passing flatus, complaining of chronic body spasms. Mild nausea, denies vomiting. Denies abdominal pain. Maintained on Decadron IV for complete obstruction at GE junction. Potassium 54, IV fluids adjusted. Afebrile, WBC 7.78, hemoglobin 8, platelets 509. Creatinine 0.7. Vital signs stable, maintaining O2 sats in the low 90s on room air. Denies chest pain, palpitations or shortness of breath. 0.7 Objective - Vital Signs Vital signs: Vital Signs Temp 98.5 F 02/07/21 08:00 Pulse 69 02/07/21 08:00 Resp 18 02/07/21 08:00 BP 132/79 02/07/21 08:00 Pulse Ox 91 L 02/07/21 08:00 Intake & Output 02/06/21 02/07/21 02/07/21 18:59 06:59 18:59 Intake Total 750 Balance 750 Weight 58.967 kg Intake: Intake, IV Titration 750 Amount D5-0.45% NaCl with KCl 750 20Meq/l 1,000 ml @ 125 mls/hr IV .Q8H [facility] Rx#: [id number] Other: Voiding Method Diaper Diaper # Voids 5 6 - Exam General: well developed, well nourished, NAD HEENT: normocephalic, atraumatic, mucus membranes moist Neck: supple, no thyromegaly no JVD CV: RRR, no murmur Lungs: normal effort, clear throughout Abd: soft, nontender, non distended, positive BS Neuro: alert and oriented x3, no focal deficits Skin: warm and dry - Labs CBC & Chem 7: 02/07/21 07:10 02/07/21 07:10 Labs: Abnormal Lab Results - Last 24 Hours (Table) 02/07/21 Range/Units 07:10 RBC 3.58 L (4.10-5.20) X 10*6/uL Hgb 8.0 L (12.0-15.0) g/dL Hct 27.9 L (37.2-46.3) % MCV 77.9 L (80.0-97.0) fL MCH 22.3 L (27.0-32.0) pg MCHC 28.7 L (32.0-37.0) g/dL RDW 19.3 H (11.5-14.5) % Plt Count 509 H (140-440) X 10*3/uL Eosinophils # 0 L (0.04-0.35) X 10*3/uL Assessment and Plan Assessment: 1. GERD s/p so fundoplication. 2. Mood disorder. 3. Hypothyroid. 4. Insomina. 5. Hyperkalemia Plan: Continue on current medication regime ,monitoring and symptomatic terri atment. Pain management/Diet advancement as per GI. PPI for GI prophylaxis. Lovenox for DVT prophylaxis. Ativan when necessary ordered for chronic spasms. Close monitoring of electrolytes,hgb. with repeat labs ordered for a.m. The impression and plan of care has been dictated as directed. : I performed a history and examination of this patient, discussed the same with the dictator. I agree with the dictator's note ,documented as a scribe. Any additional findings or plans will be noted.
[2021-02-07] MEDS: DEXTROSE 5%-0.45% NACL 1,000 ML IV SCH ×2 (17:02→22:18)
[2021-02-07] MEDS ORDERED: traZODone HCL 100 MG TAB PO SCH (21:00)
[2021-02-08] MEDS: METOCLOPRAMIDE 5 MG/ML 2 ML VIAL IVP SCH ×3 (01:40→12:12)
[2021-02-08] MEDS: DEXAMETHASONE SOD PHOSPHATE 4 MG/ML 1 ML VIAL IV SCH ×3 (01:47→12:13)
[2021-02-08] MEDS: DEXTROSE 5%-0.45% NACL 1,000 ML IV SCH ×2 (05:58→12:13)
[2021-02-08] MEDS ORDERED: LEVOTHYROXINE 50 MCG TAB PO SCH (06:30)
[2021-02-08 07:47] VITALS: BP 147/76; PULSE 98; RESP 18; TEMP 97.6
[2021-02-08] MEDS: ENOXAPARIN 40 MG/0.4 ML SYRINGE SQ SCH (08:03)
[2021-02-08] MEDS: FAMOTIDINE 20 MG/2 ML VIAL IV SCH (08:03)
[2021-02-08 09:38] LABS: Basophils # (A) 0 X 10*3/uL (0.00-0.10); Basophils % (A) 0 %; Eosinophils # (A) 0 X 10*3/uL (0.04-0.35); Eosinophils % (A) 0 %; HCT 28.1 % (37.2-46.3); HGB 8.2 g/dL (12.0-15.0); Lymphocytes # (A) 0.97 X 10*3/uL (0.90-5.00); Lymphocytes % (A) 12.2 %; MCH 22.3 pg (27.0-32.0); MCHC 29.2 g/dL (32.0-37.0); MCV 76.6 fL (80.0-97.0); Mean Platelet Volume 11.8 fL (9.5-12.2); Monocytes # (A) 0.45 X 10*3/uL (0.20-1.00); Monocytes % (A) 5.7 %; Neutrophils # (A) 6.48 X 10*3/uL (1.80-7.70); Neutrophils % (A) 81.7 %; Platelet Count 539 X 10*3/uL (140-440); RBC 3.67 X 10*6/uL (4.10-5.20); RDW 19.2 % (11.5-14.5); WBC 7.93 X 10*3/uL (4.50-10.00)
[2021-02-08 09:44] LABS: African American GFR (CKD) 116.3 (60.0-200.0); Anion Gap 8.3 mmol/L (4.00-12.00); BUN/Creat Ratio 12.86 Ratio (12.00-20.00); Calcium 9.5 mg/dL (8.7-10.3); Carbon Dioxide 23.7 mmol/L (21.6-31.8); Non-African American GFR(CKD) 100.3 (60.0-200.0); Potassium 4.6 mmol/L (3.5-5.5)
[2021-02-08] MEDS: LORATADINE 10 MG TAB PO SCH (09:47)
[2021-02-08] MEDS: CYCLOBENZAPRINE 5 MG TAB PO SCH (09:47)
[2021-02-08] MEDS: LACTATED RINGERS 1,000 ML IV SCH (09:47)
[2021-02-08] MEDS: ARIPiprazole 10 MG TAB PO SCH (09:47)
[2021-02-08] MEDS: OXYBUTYNIN CHLORIDE 5 MG TAB PO SCH (09:47)
[2021-02-08] MEDS: GABAPENTIN 300 MG CAP PO SCH (09:47)
[2021-02-08] MEDS: DULoxetine HCL 60 MG CAPSULE.DR PO SCH (09:47)
[2021-02-08] MEDS: PANTOPRAZOLE 40 MG TABLET PO SCH (09:48)
[2021-02-08] MEDS: LORazepam 2 MG/ML INJ IV PRN (11:01)
--- NOTE | 2021-02-08 13:30 | P.PN ---
Subjective Progress Note Date: 02/08/21 CHIEF COMPLAINT: Gastroesophageal reflux disease HISTORY OF PRESENT ILLNESS: The patient is a 51-year-old status post Titus fundoplasty with esophageal obstruction. She reports tolerating liquids. ROS: No reports of nausea and vomiting. No fevers or chills. No new chest pain. No productive sputum PHYSICAL EXAM: VITAL SIGNS: Reviewed CONSTITUTIONAL: Well developed and in no acute distress. EYES: Conjuctivae without sclera icterus. Extraocular movements grossly intact. HEAD, EARS, NOSE, THROAT: Moist buccal mucosa. Head is atraumatic, normocephalic. Hears conversational speech. No nasal drainage. Has dysarthria. RESPIRATORY: Non-labored respirations and equal bilateral excursions. CARDIOVASCULAR: Palpable 2+ radial pulses. ABDOMEN: No peritonitis. MUSCULOSKELETAL: Has spasticity. SKIN: Good skin turgor. Well perfused. NEUROLOGIC: Cranial nerves II through XII grossly intact. No focal or lateralizing signs. PSYCH: Appropriate affect. Alert and oriented to person, place and time. STUDIES: Reviewed. Esophagram reviewed with complete obstruction from 02/06/2021 CLINICAL LABS: Reviewed. Hemoglobin 8.2. White count normal 7.93 ASSESSMENT: 1. Gastroesophageal reflux disease 2. Esophageal instructions status post of some fundoplasty nonimprovement 3. Dysarthria PLAN: 1. Patient reports chronic improvement 2. Discharge home with Titus liquids and Titus diet. Objective - Vital Signs Vital signs: Vital Signs Temp 97.6 F 02/08/21 07:46 Pulse 98 02/08/21 07:46 Resp 18 02/08/21 07:46 BP 147/76 02/08/21 07:46 Pulse Ox 91 L 02/08/21 07:46 Intake & Output 02/07/21 02/08/21 02/08/21 18:59 06:59 18:59 Other: Voiding Method Diaper Diaper # Voids 1 1 1 # Bowel Movements 1 1 - Labs CBC & Chem 7: 02/08/21 06:16 02/08/21 06:16 Labs: Abnormal Lab Results - Last 24 Hours (Table) 02/07/21 02/07/21 02/08/21 Range/Units 07:10 07:10 06:16 RBC 3.58 L 3.67 L (4.10-5.20) X 10*6/uL Hgb 8.0 L 8.2 L (12.0-15.0) g/dL Hct 27.9 L 28.1 L (37.2-46.3) % MCV 77.9 L 76.6 L (80.0-97.0) fL MCH 22.3 L 22.3 L (27.0-32.0) pg MCHC 28.7 L 29.2 L (32.0-37.0) g/dL RDW 19.3 H 19.2 H (11.5-14.5) % Plt Count 509 H 539 H (140-440) X 10*3/uL Eosinophils # 0 L 0 L (0.04-0.35) X 10*3/uL BUN 6.0 L (9.0-27.0) mg/dL BUN/Creatinine Ratio 8.57 L (12.00-20.00) Ratio Glucose (70-110) mg/dL 02/08/21 Range/Units 06:16 RBC (4.10-5.20) X 10*6/uL Hgb (12.0-15.0) g/dL Hct (37.2-46.3) % MCV (80.0-97.0) fL MCH (27.0-32.0) pg MCHC (32.0-37.0) g/dL RDW (11.5-14.5) % Plt Count (140-440) X 10*3/uL Eosinophils # (0.04-0.35) X 10*3/uL BUN (9.0-27.0) mg/dL BUN/Creatinine Ratio (12.00-20.00) Ratio Glucose 128 H (70-110) mg/dL Assessment and Plan (1) Hiatal hernia with GERD Current Visit: Yes Status: Acute Code(s): K21.9 - GASTRO-ESOPHAGEAL REFLUX DISEASE WITHOUT ESOPHAGITIS; K44.9 - DIAPHRAGMATIC HERNIA WITHOUT OBSTRUCTION OR GANGRENE SNOMED Code(s): 017237702 (2) Dysarthria Current Visit: Yes Status: Acute Code(s): R47.1 - DYSARTHRIA AND ANARTHRIA SNOMED Code(s): 6941664 (3) Anemia Current Visit: Yes Status: Acute Code(s): D64.9 - ANEMIA, UNSPECIFIED SNOMED Code(s): 472829909 (4) GERD (gastroesophageal reflux disease) Current Visit: Yes Status: Acute Code(s): K21.9 - GASTRO-ESOPHAGEAL REFLUX DISEASE WITHOUT ESOPHAGITIS SNOMED Code(s): 301175439
--- NOTE | 2021-02-08 13:34 | P.DS ---
Providers Date of admission: 02/08/21 11:48 Expected date of discharge: 02/08/21 Attending physician: Bertrand Ken Consults: 02/05/21 14:19 Consult Physician Routine Consulting Provider: Martín Saini Consult Reason/Comments: medical management Do you want consulting provider notified?: Yes Primary care physician: Alondra Silva - Discharge Diagnosis(es) (1) Hiatal hernia with GERD Current Visit: Yes Status: Acute (2) Dysarthria Current Visit: Yes Status: Acute (3) Anemia Current Visit: Yes Status: Acute (4) GERD (gastroesophageal reflux disease) Current Visit: Yes Status: Acute Hospital Course: CHIEF COMPLAINT: Gastroesophageal reflux disease HISTORY OF PRESENT ILLNESS: The patient is a 51-year-old status post Titus fundoplasty with esophageal obstruction. She reports tolerating liquids. ROS: No reports of nausea and vomiting. No fevers or chills. No new chest pain . No productive sputum PHYSICAL EXAM: VITAL SIGNS: Reviewed CONSTITUTIONAL: Well developed and in no acute distress. EYES: Conjuctivae without sclera icterus. Extraocular movements grossly intact. HEAD, EARS, NOSE, THROAT: Moist buccal mucosa. Head is atraumatic, normocephalic. Hears conversational speech. No nasal drainage. Has dysarthria. RESPIRATORY: Non-labored respirations and equal bilateral excursions. CARDIOVASCULAR: Palpable 2+ radial pulses. ABDOMEN: No peritonitis. MUSCULOSKELETAL: Has spasticity. SKIN: Good skin turgor. Well perfused. NEUROLOGIC: Cranial nerves II through XII grossly intact. No focal or lateralizing signs. PSYCH: Appropriate affect. Alert and oriented to person, place and time. STUDIES: Reviewed. Esophagram reviewed with complete obstruction from 02/06/2021 CLINICAL LABS: Reviewed. Hemoglobin 8.2. White count normal 7.93 ASSESSMENT: 1. Gastroesophageal reflux disease 2. Esophageal instructions status post of some fundoplasty nonimprovement 3. Dysarthria PLAN: 1. Patient reports chronic improvement 2. Discharge home with Titus liquids and Titus diet. Patient Condition at Discharge: Stable Plan - Discharge Summary Discharge Rx Participant: Yes New Discharge Prescriptions: New Acetaminophen Oral Susp [Tylenol Oral Susp] 500 mg PO Q4-6H PRN #400 ml PRN Reason: Pain Continue traZODone HCL 100 mg PO HS HYDROcodone/APAP 7.5-325MG [[place] 7.5-325] 1 tab PO TID Gabapentin [Neurontin] 300 mg PO BID DULoxetine HCL [Cymbalta] 60 mg PO DAILY Loratadine [Claritin] 10 mg PO DAILY Turmeric Root Extract [Turmeric] 500 mg PO DAILY Multivitamins, Thera [Multivitamin (formulary)] 1 tab PO DAILY Ergocalciferol [Vitamin D2 (1250 Mcg = 60366 Iu)] 1,250 mcg PO [place] Magnesium Oxide [Jade] 500 mg PO DAILY Ascorbic Acid [Vitamin C] 1,000 mg PO DAILY Oxybutynin Chloride [Ditropan] 5 mg PO QAM Omeprazole 20 mg PO BID Black Coh[place] 80 mg PO DAILY Cyclobenzaprine [Flexeril] 5 mg PO TID Fluocinonide 0.05% [Lidex 0.05% cream] 15 applic TOPICAL DAILY Sulfamethoxazole/Trimethoprim [Bactrim DS 800-160 mg] 1 each PO BID Betamethasone Dipropionate [Betamethasone Dipropionate 0.05%] 1 applic TOPICAL DAILY ARIPiprazole [Abilify] 10 mg PO DAILY Levothyroxine Sodium [Synthroid] 50 mcg PO DAILY Discharge Medication List DULoxetine HCL [Cymbalta] 60 mg PO DAILY 06/11/17 [History] Gabapentin [Neurontin] 300 mg PO BID 06/11/17 [History] HYDROcodone/APAP 7.5-325MG [[place] 7.5-325] 1 tab PO TID 06/11/17 [History] Loratadine [Claritin] 10 mg PO DAILY 06/11/17 [History] traZODone HCL 100 mg PO HS 06/11/17 [History] Ascorbic Acid [Vitamin C] 1,000 mg PO DAILY 11/26/20 [History] Black Cohosh 80 mg PO DAILY 11/26/20 [History] Ergocalciferol [Vitamin D2 (1250 Mcg = 91173 Iu)] 1,250 mcg PO [place] 11/26/20 [History] Magnesium Oxide [Jade] 500 mg PO DAILY 11/26/20 [History] Multivitamins, Thera [Multivitamin (formulary)] 1 tab PO DAILY 11/26/20 [History] Omeprazole 20 mg PO BID 11/26/20 [History] Oxybutynin Chloride [Ditropan] 5 mg PO QAM 11/26/20 [History] Turmeric Root Extract [Turmeric] 500 mg PO DAILY 11/26/20 [History] ARIPiprazole [Abilify] 10 mg PO DAILY 01/06/21 [History] Betamethasone Dipropionate [Betamethasone Dipropionate 0.05%] 1 applic TOPICAL DAILY 01/06/21 [History] Cyclobenzaprine [Flexeril] 5 mg PO TID 01/06/21 [History] Fluocinonide 0.05% [Lidex 0.05% cream] 15 applic TOPICAL DAILY 01/06/21 [History] Levothyroxine Sodium [Synthroid] 50 mcg PO DAILY 01/06/21 [History] Sulfamethoxazole/Trimethoprim [Bactrim DS 800-160 mg] 1 each PO BID 01/30/21 [History] Acetaminophen Oral Susp [Tylenol Oral Susp] 500 mg PO Q4-6H PRN #400 ml 02/08/21 [Rx] Follow up Appointment(s)/Referral(s): Bertrand Ken MD [STAFF PHYSICIAN] - 1 Week Patient Instructions/Handouts: Hiatal Hernia (GEN), Laparoscopic Hiatal Hernia Repair (DC) Activity/Diet/Wound Care/Special Instructions: No lifting over 10 pounds 2 weeks. Please open, crushed, cut medications larger than the size of baby aspirin for easier swallowing. Follow Titus diet Discharge Disposition: HOME SELF-CARE
--- NOTE | 2021-02-08 16:09 | P.PN ---
Subjective patient is admitted for Titus fundoplication. Patient is clinically doing well and is being discharged today I did review the discharge medication reconciliation patient was on Bactrim as an outpatient unsure why I didn't see a reason to continue Bactrim Bactrim will be discontinued. Objective - Vital Signs Vital signs: Vital Signs Temp 97.6 F 02/08/21 07:46 Pulse 98 02/08/21 07:46 Resp 18 02/08/21 07:46 BP 147/76 02/08/21 07:46 Pulse Ox 91 L 02/08/21 07:46 Intake & Output 02/07/21 02/08/21 02/08/21 18:59 06:59 18:59 Other: Voiding Method Diaper Diaper Diaper External Catheter # Voids 1 1 2 # Bowel Movements 1 4 - Labs CBC & Chem 7: 02/08/21 06:16 02/08/21 06:16 Labs: Abnormal Lab Results - Last 24 Hours (Table) 02/08/21 02/08/21 Range/Units 06:16 06:16 RBC 3.67 L (4.10-5.20) X 10*6/uL Hgb 8.2 L (12.0-15.0) g/dL Hct 28.1 L (37.2-46.3) % MCV 76.6 L (80.0-97.0) fL MCH 22.3 L (27.0-32.0) pg MCHC 29.2 L (32.0-37.0) g/dL RDW 19.2 H (11.5-14.5) % Plt Count 539 H (140-440) X 10*3/uL Eosinophils # 0 L (0.04-0.35) X 10*3/uL Glucose 128 H (70-110) mg/dL Assessment and Plan Plan: -gastroesophageal reflux disease status post Titus fundoplication -hypothyroidism -Seizure disorder -Fibromyalgia -depression. Discharge medications were reviewed reconciliation was corrected -
== END 2021-02-08 16:04 | disposition home or self-care (01) | DRG 328 ==
LOC: OR 10:29 → 4SSUR 15:26 → OR 02-06 11:28 → 4SSUR 02-06 11:28 → OBSVTOIN 02-07 11:46 → INTOOBSV 02-07 11:46 → OBSVTOIN 02-08 11:48
PROVIDERS: ADMIT Surgery; ATTEND Surgery
PROC: 0BQT4ZZ Repair Diaphragm, Percutaneous Endoscopic Approach (ICD-10-PCS; 2021-02-05)
PROC: 0DV44ZZ Restriction of Esophagogastric Junction, Percutaneous Endoscopic Approach (ICD-10-PCS; principal; 2021-02-05 12:05)
DX: K21.00 Gastro-esophageal reflux disease with esophagitis, without bleeding (principal); M79.7 Fibromyalgia; M06.9 Rheumatoid arthritis, unspecified; Z96.643 Presence of artificial hip joint, bilateral; Z79.890 Hormone replacement therapy; F39 Unspecified mood [affective] disorder; E03.9 Hypothyroidism, unspecified; Z20.822 Contact with and (suspected) exposure to COVID-19; G80.9 Cerebral palsy, unspecified; K22.2 Esophageal obstruction; E87.5 Hyperkalemia; R47.1 Dysarthria and anarthria; K44.9 Diaphragmatic hernia without obstruction or gangrene; D64.9 Anemia, unspecified; G40.909 Epilepsy, unspecified, not intractable, without status epilepticus
CPT/HCPCS: 74210; 80048; 81025; 84703; 85025; 87635

== ENCOUNTER 2024-07-29 15:43 | Emergency (ER) | payer MEDICARE, OTHER ==
[2024-07-29 15:54] VITALS: TEMP 98.3
--- NOTE | 2024-07-29 16:20 | ED ---
Extremity Problem HPI - General Chief complaint: Extremity Problem,Nontraumatic Stated complaint: R shoulder pain Time Seen by Provider: 07/29/24 15:58 Source: patient, RN notes reviewed, old records reviewed Mode of arrival: wheelchair Limitations: no limitations - History of Present Illness Initial comments: This is a 54-year-old female with right shoulder pain difficulty moving right shoulder no specific traumatic injury was noted. History of right shoulder pain sees orthopedics for this pain, unable to see orthopedic still 2 weeks from now MD Complaint: extremity pain -: days(s) Location: right, upper extremity History of Same: Yes -: Yes arthralgia Radiation: proximal, distal Severity scale (1-10): 6 Quality: stabbing Consistency: constant Improves with: nothing Worsens with: nothing Associated Symptoms: denies other symptoms - Related Data Home Medications Medication Instructions Recorded Confirmed DULoxetine HCL [Cymbalta] 60 mg PO DAILY 06/11/17 01/30/21 Gabapentin [Neurontin] 300 mg PO BID 06/11/17 01/30/21 HYDROcodone/APAP 7.5-325MG [[place] 1 tab PO TID 06/11/17 01/30/21 7.5-325] Loratadine [Claritin] 10 mg PO DAILY 06/11/17 01/30/21 traZODone HCL 100 mg PO HS 06/11/17 01/30/21 Ascorbic Acid [Vitamin C] 1,000 mg PO DAILY 11/26/20 01/30/21 Black Cohosh 80 mg PO DAILY 11/26/20 01/30/21 Ergocalciferol [Vitamin D2 (1250 1,250 mcg PO JACKSON 11/26/20 01/30/21 Mcg = 36097 Iu)] Magnesium Oxide [Jade] 500 mg PO DAILY 11/26/20 01/30/21 Multivitamins, Thera [Multivitamin 1 tab PO DAILY 11/26/20 01/30/21 (formulary)] Omeprazole 20 mg PO BID 11/26/20 01/30/21 Turmeric Root Extract [Turmeric] 500 mg PO DAILY 11/26/20 01/30/21 oxyBUTYnin chloride [Ditropan] 5 mg PO QAM 11/26/20 01/30/21 ARIPiprazole [Abilify] 10 mg PO DAILY 01/06/21 01/30/21 Betamethasone Dipropionate 1 applic TOPICAL DAILY 01/06/21 01/30/21 [Betamethasone Dipropionate 0.05%] Cyclobenzaprine [Flexeril] 5 mg PO TID 01/06/21 01/30/21 Fluocinonide 0.05% [Lidex 0.05% 15 applic TOPICAL DAILY 01/06/21 01/30/21 cream] Levothyroxine Sodium [Synthroid] 50 mcg PO DAILY 01/06/21 01/30/21 Previous Rx's Medication Instructions Recorded Acetaminophen Oral Susp [Tylenol 500 mg PO Q4-6H PRN #400 ml 02/08/21 Oral Susp] Allergies Allergy/AdvReac Type Severity Reaction Status Date / Time No Known Allergies Allergy Verified 07/29/24 15:54 Review of Systems ROS Statement: Those systems with pertinent positive or pertinent negative responses have been documented in the HPI. ROS Other: All systems not noted in ROS Statement are negative. Past Medical History Past Medical History: Fibromyalgia, GERD/Reflux, Musculoskeletal Disorder, Rheumatoid Arthritis (RA), Seizure Disorder, Skin Disorder, Thyroid Disorder Additional Past Medical History / Comment(s): cerebral palsy(walks on knees with knee pads), LAST SEIZURE A CHILD, heartburn, constipation, psoriasis, "low blood"-caregiver not sure what is low, History of Any Multi-Drug Resistant Organisms: None Reported Past Surgical History: Joint Replacement, Orthopedic Surgery Additional Past Surgical History / Comment(s): contracture release in groin area, rt hip replacement, partial left hip replacement,growth removed rt knee, Past Anesthesia/Blood Transfusion Reactions: Family History of Problems w/ Anesthesia Additional Past Anesthesia/Blood Transfusion Reaction / Comment(s): mother had issues w/waking up from anesthesia Past Psychological History: Depression Smoking Status: Never smoker Past Alcohol Use History: Rare Past Drug Use History: None Reported - Past Family History Mother Family Medical History: No Reported History General Exam Limitations: no limitations General appearance: alert, in no apparent distress Head exam: Present: atraumatic, normocephalic, normal inspection Eye exam: Present: normal appearance, PERRL, EOMI. Absent: scleral icterus, conjunctival injection, periorbital swelling ENT exam: Present: normal exam, mucous membranes moist Neck exam: Present: normal inspection. Absent: tenderness, meningismus, lymphadenopathy Respiratory exam: Present: normal lung sounds bilaterally. Absent: respiratory distress, wheezes, rales, rhonchi, stridor Cardiovascular Exam: Present: regular rate, normal rhythm, normal heart sounds. Absent: systolic murmur, diastolic murmur, rubs, gallop, clicks GI/Abdominal exam: Present: soft, normal bowel sounds. Absent: distended, tenderness, guarding, rebound, rigid Extremities exam: Present: normal inspection, full ROM, normal capillary refill. Absent: tenderness, pedal edema, joint swelling, calf tenderness Back exam: Present: normal inspection Neurological exam: Present: alert, oriented X3, CN II-XII intact Psychiatric exam: Present: normal affect, normal mood Skin exam: Present: warm, dry, intact, normal color. Absent: rash Course Vital Signs 07/29/24 15:51 Temperature 98.3 F Pulse Rate 88 Respiratory 20 Rate O2 Sat by Pulse 96 Oximetry - Reevaluation(s) Reevaluation #1: 07/29/24 16:48 Medical records reviewed Reevaluation #2: 07/29/24 16:48 Patient symptoms improved Reevaluation #3: 07/29/24 16:48 Patient informed of results and questions answered Reevaluation #4: Was pt. sent in by a medical professional or institution (, PA, TECHNICAL MANAGER, urgent care, hospital, or custodial...) When possible be specific @ -no Did you speak to anyone other than the patient for history (EMS, parent, family, police, friend...)? What history was obtained from this source @ -no Did you review nursing and triage notes (agree or disagree)? Why? @ -agree Are old charts reviewed (outside hosp., previous admission, EMS record, old EKG, old radiological studies, urgent care reports/EKG's, custodial records)? Report findings @ -yes Differential Diagnosis (chest pain, altered mental status, abdominal pain women, abdominal pain men, vaginal bleeding, weakness, fever, dyspnea, syncope, headache, dizziness, GI bleed, back pain, seizure, CVA, palpatations, mental health, musculoskeletal)? @ -prior EKG interpreted by me (3pts min.). @ -yes X-rays interpreted by me (1pt min.). @ -yes negative for acute disease CT interpreted by me (1pt min.). @ -no U/S interpreted by me (1pt. min.). @ -no What testing was considered but not performed or refused? (CT, X-rays, U/S, labs)? Why? @ -none What meds were considered but not given or refused? Why? @ -none Did you discuss the management of the patient with other professionals (professionals i.e. Dr., PA, TECHNICAL MANAGER, lab, RT, psych nurse, social media content specialist, secondary school principal, teacher, nuclear officer, shoe caser)? Give summary @ -no Was smoking cessation discussed for >3mins.? @ -no Was critical care preformed (if so, how long)? @ -no Were there social determinants of health that impacted care today? How? (Homelessness, low income, unemployed, alcoholism, drug addiction, transportation, low edu. Level, literacy, decrease access to med. care, [facility], rehab)? @ -none Was there de-escalation of care discussed even if they declined (Discuss DNR or withdrawal of care, Hospice)? DNR status @ -no What co-morbidities impacted this encounter? (DM, HTN, Smoking, COPD, CAD, Cancer, CVA, ARF, Chemo, Hep., AIDS, mental health diagnosis, sleep apnea, morbid obesity)? @ -none Was patient admitted / discharged? Hospital course, mention meds given and route, prescriptions, significant lab abnormalities, going to OR and other pertinent info. @ - Undiagnosed new problem with uncertain prognosis? @ -no Drug Therapy requiring intensive monitoring for toxicity (Heparin, Nitro, Insulin, Cardizem)? @ -no Were any procedures done? @ -no Diagnosis/symptom? @ - Acute, or Chronic, or Acute on Chronic? @ -Acute Uncomplicated (without systemic symptoms) or Complicated (systemic symptoms)? @ -Complicated Side effects of treatment? @ -no Exacerbation, Progression, or Severe Exacerbation? @ -exacerbation Poses a threat to life or bodily function? How? (Chest pain, [place], [place], pneumonia, PE, COPD, DKA, ARF, appy, cholecystitis, CVA, Diverticulitis, Homicidal, Suicidal, threat to staff... and all critical care pts) @ -yes Medical Decision Making - Medical Decision Making 54 female to ER with right shoulder pain. No acute findings here in the emergency room and pain is controlled patient can be discharged home - Radiology Data Radiology results: report reviewed (X-ray right shoulder negative for acute disease), image reviewed Disposition Clinical Impression: Right shoulder pain Disposition: HOME SELF-CARE Condition: Good Instructions (If sedation given, give patient instructions): Shoulder Pain (ED) Is patient prescribed a controlled substance at d/c from ED?: No Referrals: Alondra Silva DO [Primary Care Provider] - 1-2 days Time of Disposition: 16:30
--- NOTE | 2024-07-29 16:40 | XR ---
EXAMINATION TYPE: XR shoulder complete RT DATE OF EXAM: 07/29/2024 4:33 PM COMPARISON: None available. CLINICAL INDICATION: Female, 54 years old with history of pain; [facility] TECHNIQUE: XR shoulder complete RT; examined in AP, internally rotated and scapular Y projections. FINDINGS: No evidence of acute osseous pathology, joint dislocation, or soft tissue swelling. The remaining po rtions of the visualized chest are unremarkable. IMPRESSION: No acute osseous pathology. [facility], , 07/29/2024 4:37 PM
[2024-07-29] MEDS: HYDROmorphone 1 MG/ML 1 ML SYRINGE IM STA (16:42)
[2024-07-29 17:30] VITALS: BP 109/76; PULSE 81; RESP 16
== END 2024-07-29 17:30 | disposition home or self-care (01) ==
LOC: EC 15:43
DX: M25.511 Pain in right shoulder (principal)
CPT/HCPCS: 96372; 99283

== ENCOUNTER 2024-09-02 18:06 | Observation (INO) | payer MEDICARE, OTHER ==
--- NOTE | 2024-09-02 18:29 | ED ---
General Adult HPI - General Chief complaint: Shortness of Breath Stated complaint: AGUSTÍN Time Seen by Provider: 09/02/24 18:09 Source: patient, EMS Mode of arrival: EMS - History of Present Illness Initial comments: This patient is a 54-year-old woman who presents to have evaluation of coughing. The patient relates that she has had cough going back to earlier this week. She had gone to see her physician and had been prescribed Augmentin. She states that things did not really change until this evening. She states that for the past 90 minutes she had been coughing continuously so EMS was called and they bring her here for evaluation. Patient denies real dyspnea she states except when she has a coughing spell and has to catch her breath. She did not note fever. No hemoptysis. Patient does have underlying history of cerebral palsy. Onset/Timin -: minutes(s) Severity scale (1-10): 0 Consistency: constant Improves with: none Worsens with: none Associated Symptoms: cough Treatments Prior to Arrival: none - Related Data Home Medications Medication Instructions Recorded Confirmed DULoxetine HCL [Cymbalta] 60 mg PO DAILY 06/11/17 09/04/24 Gabapentin [Neurontin] 300 mg PO BID 06/11/17 09/04/24 HYDROcodone/APAP 7.5-325MG [[place] 1 tab PO TID 06/11/17 09/04/24 7.5-325] Loratadine [Claritin] 10 mg PO DAILY 06/11/17 09/04/24 traZODone HCL 50 - 100 mg PO HS 06/11/17 09/04/24 Ascorbic Acid [Vitamin C] 1,500 mg PO DAILY 11/26/20 09/04/24 Ergocalciferol [Vitamin D2 (1250 1,250 mcg PO Q7D 11/26/20 09/04/24 Mcg = 04245 Iu)] Magnesium Oxide [Jade] 500 mg PO DAILY 11/26/20 09/04/24 Multivitamins, Thera [Multivitamin 1 tab PO DAILY 11/26/20 09/04/24 (formulary)] Omeprazole 40 mg PO DAILY 11/26/20 09/04/24 Cyclobenzaprine [Flexeril] 5 mg PO TID 01/06/21 09/04/24 ARIPiprazole [Abilify] 15 mg PO DAILY 09/04/24 09/04/24 Alendronate Sodium [Fosamax] 70 mg PO WEEKLY 09/04/24 09/04/24 Docusate [Colace] 100 mg PO DAILY 09/04/24 09/04/24 Famotidine [Pepcid] 40 mg PO DAILY 09/04/24 09/04/24 Fluocinonide [Lidex 0.05%] 1 applic TOPICAL BID 09/04/24 09/04/24 Ketoconazole 2% Shampoo [Nizoral] 1 applic TOPICAL Q48H 09/04/24 09/04/24 Levothyroxine Sodium [Synthroid] 100 mcg PO DAILY 09/04/24 09/04/24 Oxybutynin Chloride [oxyBUTYnin 30 mg PO DAILY 09/04/24 09/04/24 chloride ER] Triamcinolone 0.1% Ointment 1 applic TOPICAL BID PRN 09/04/24 09/04/24 [Kenalog 0.1% Ointment] Previous Rx's Medication Instructions Recorded Benzonatate [Tessalon Perles] 100 mg PO TID PRN #15 cap 09/06/24 predniSONE 10 mg PO DIRECTED #30 tab 09/06/24 Allergies Allergy/AdvReac Type Severity Reaction Status Date / Time No Known Allergies Allergy Verified 09/02/24 18:15 Review of Systems ROS Statement: Those systems with pertinent positive or pertinent negative responses have been documented in the HPI. ROS Other: All systems not noted in ROS Statement are negative. Constitutional: Denies: fever, chills ENT: Denies: throat pain, congestion Respiratory: Reports: cough. Denies: dyspnea, wheezes, hemoptysis Cardiovascular: Denies: chest pain, palpitations, edema, syncope Gastrointestinal: Denies: abdominal pain, vomiting, diarrhea Genitourinary: Denies: dysuria, hematuria Musculoskeletal: Denies: back pain Skin: Denies: rash Neurological: Denies: headache, weakness Past Medical History Past Medical History: Fibromyalgia, GERD/Reflux, Musculoskeletal Disorder, Rheumatoid Arthritis (RA), Seizure Disorder, Skin Disorder, Thyroid Disorder Additional Past Medical History / Comment(s): cerebral palsy(walks on knees with knee pads), LAST SEIZURE A CHILD, heartburn, constipation, psoriasis, "low blood"-caregiver not sure what is low, History of Any Multi-Drug Resistant Organisms: None Reported Past Surgical History: Joint Replacement, Orthopedic Surgery Additional Past Surgical History / Comment(s): contracture release in groin area, rt hip replacement, partial left hip replacement,growth removed rt knee, Past Anesthesia/Blood Transfusion Reactions: Family History of Problems w/ Anesthesia Additional Past Anesthesia/Blood Transfusion Reaction / Comment(s): mother had issues w/waking up from anesthesia Past Psychological History: Depression Smoking Status: Never smoker Past Alcohol Use History: Rare Past Drug Use History: None Reported - Past Family History Mother Family Medical History: No Reported History General Exam General appearance: alert, in no apparent distress, other (Very frequent cough during exam.) Head exam: Present: atraumatic, normocephalic, normal inspection Eye exam: Present: normal appearance. Absent: scleral icterus, conjunctival injection ENT exam: Present: mucous membranes dry Neck exam: Present: normal inspection, full ROM. Absent: tenderness, meningismus Respiratory exam: Present: respiratory distress (Mild tachypnea), other (Frequent cough). Absent: wheezes, rales, rhonchi, stridor, accessory muscle use Cardiovascular Exam: Present: normal rhythm, tachycardia, normal heart sounds. Absent: systolic murmur, diastolic murmur, rubs, gallop GI/Abdominal exam: Present: soft. Absent: distended, tenderness, guarding, rebound, rigid, mass Extremities exam: Present: normal capillary refill. Absent: pedal edema, calf tenderness Back exam: Present: normal inspection. Absent: CVA tenderness (R), CVA tenderness (L) Neurological exam: Present: alert Skin exam: Present: warm, dry, intact, normal color. Absent: rash Course Vital Signs 09/02/24 09/02/24 09/02/24 18:08 21:11 22:05 Temperature 100.2 F H 98.4 F Pulse Rate 118 H 102 H Respiratory 30 H 20 Rate Blood Pressure 122/104 114/77 O2 Sat by Pulse 96 99 Oximetry 09/03/24 05:51 Temperature 97.9 F Pulse Rate 108 H Respiratory 18 Rate Blood Pressure 112/91 O2 Sat by Pulse 96 Oximetry Medical Decision Making - Medical Decision Making The patient had two-view chest x-ray that I interpreted as negative for infiltrate, pneumothorax, congestive heart failure Was pt. sent in by a medical professional or institution (Dr., PA, WOOL WASHER FEEDER, urgent care, hospital, or senior living...) When possible be specific @ -[No] Did you speak to anyone other than the patient for history (EMS, parent, family, police, friend...)? What history was obtained from this source @ -[No] Did you review nursing and triage notes (agree or disagree)? Why? @ -[I reviewed and agree with nursing and triage notes] Were old charts reviewed (outside hosp., previous admission, EMS record, old EKG, old radiological studies, urgent care reports/EKG's, senior living records)? Report findings @ -[No old charts were reviewed] Differential Diagnosis (chest pain, altered mental status, abdominal pain women, abdominal pain men, vaginal bleeding, weakness, fever, dyspnea, syncope, headache, dizziness, GI bleed, back pain, seizure, CVA, palpatations, mental health, musculoskeletal)? @ -[Differential Dyspnea: Coronary syndrome, arrhythmia, tamponade, asthma, COPD, pulmonary embolism, pneumonia, pneumothorax, pulmonary effusion, anaphylaxis, diabetic ketoacidosis, flailed chest, pulmonary contusion, diaphragmatic rupture, anemia, neuromuscular, this is not meant to be an all-inclusive list. Differential Fever: Pneumonia, viral URI, endocarditis, myocarditis, pericarditis, otitis, sinusitis, peritonsillar Abscess, retropharyngeal Abscess, epiglottitis, peritonitis, appendicitis, Neida cystitis, diverticulitis, hepatitis, colitis, UTI, PID, TOA, pyelonephritis, prostatitis, epididymitis, meningitis, encephalit is, pulmonary embolism, CVA, thyroid storm, pancreatitis, adrenal crisis, cavernous sinus thrombosis, this is not meant to be an all-inclusive list. EKG interpreted by me (3pts min.). @ -[I interpreted as above] X-rays interpreted by me (1pt min.). @ -[I interpreted as above CT interpreted by me (1pt min.). @ -[None done] U/S interpreted by me (1pt. min.). @ -[None done] What testing was considered but not performed or refused? (CT, X-rays, U/S, labs)? Why? @ -[None] What meds were considered but not given or refused? Why? @ -[None] Did you discuss the management of the patient with other professionals (professionals i.e. , PA, WOOL WASHER FEEDER, lab, RT, psych nurse, director of social services, flight kitchen manager, teacher, corporate ethics officer, caseworker protective services)? Give summary @ -[No] Was smoking cessation discussed for >3mins.? @ -[No] Was critical care preformed (if so, how long)? @ -[No] Were there social determinants of health that impacted care today? How? (Homelessness, low income, unemployed, alcoholism, drug addiction, transportation, low edu. Level, literacy, decrease access to med. care, correction, rehab)? @ -[No] Was there de-escalation of care discussed even if they declined (Discuss DNR or withdrawal of care, Hospice)? DNR status @ -[No] What co-morbidities impacted this encounter? (DM, HTN, Smoking, COPD, CAD, Cancer, CVA, ARF, Chemo, Hep., AIDS, mental health diagnosis, sleep apnea, morbid obesity)? @ -[None] Was patient admitted / discharged? Hospital course, mention meds given and route, prescriptions, significant lab abnormalities, going to OR and other pertinent info. @ -Patient is 54-year-old woman here with fever, cough, dyspnea. The patient's workup does reveal RSV infection. Urinalysis consistent with urinary tract infection. Given patient's comorbidities including cerebral palsy, will admit for antibiotic therapy and supportive treatment Undiagnosed new problem with uncertain prognosis? @ -[No] Drug Therapy requiring intensive monitoring for toxicity (Heparin, Nitro, Insuli n, Cardizem)? @ -[No] Were any procedures done? @ -[No] Diagnosis/symptom? @ -[Acute RSV infection Urinary tract infection Acute, or Chronic, or Acute on Chronic? @ -[Acute Uncomplicated (without systemic symptoms) or Complicated (systemic symptoms)? @ -[default] Side effects of treatment? @ -[No] Exacerbation, Progression, or Severe Exacerbation? @ -[No] Poses a threat to life or bodily function? How? (Chest pain, [place], [place], pneumonia, PE, COPD, DKA, ARF, appy, cholecystitis, CVA, Diverticulitis, Homicidal, Suicidal, threat to staff... and all critical care pts) @ -[No] All treatments are based on ideal body weight as in ED triage - Lab Data Result diagrams: 09/05/24 03:59 09/05/24 03:59 Lab Results 09/02/24 09/02/24 09/02/24 Range/Units 18:28 19:27 19:27 WBC 14.8 H (3.8-10.6) k/uL RBC 4.69 (3.80-5.40) m/uL Hgb 14.0 (11.4-16.0) gm/dL Hct 43.3 (34.0-46.0) % MCV 92.3 (80.0-100.0) fL MCH 29.7 (25.0-35.0) pg MCHC 32.2 (31.0-37.0) g/dL RDW 12.8 (11.5-15.5) % Plt Count 493 H (150-450) k/uL MPV 8.3 Neutrophils % 70 % Lymphocytes % 20 % Monocytes % 8 % Eosinophils % 1 % Basophils % 0 % Neutrophils # 10.4 H (1.3-7.7) k/uL Lymphocytes # 3.0 (1.0-4.8) k/uL Monocytes # 1.2 H (0-1.0) k/uL Eosinophils # 0.1 (0-0.7) k/uL Basophils # 0.0 (0-0.2) k/uL Sodium 138 (137-145) mmol/L Potassium 4.6 (3.5-5.1) mmol/L Chloride 102 (98-107) mmol/L Carbon Dioxide 20 L (22-30) mmol/L Anion Gap 16 mmol/L BUN 6 L (7-17) mg/dL Creatinine 0.75 (0.52-1.04) mg/dL Est GFR (CKD-EPI)AfAm >90 (>60 ml/min/1.73 sqM) Est GFR (CKD-EPI)NonAf >90 (>60 ml/min/1.73 sqM) Glucose 182 H (74-99) mg/dL Calcium 9.9 (8.4-10.2) mg/dL Total Bilirubin 0.5 (0.2-1.3) mg/dL AST 26 (14-36) U/L ALT 21 (4-34) U/L Alkaline Phosphatase 114 (38-126) U/L Troponin I (0.000-0.034) ng/mL Total Protein 7.9 (6.3-8.2) g/dL Albumin 4.5 (3.5-5.0) g/dL Urine Color Urine Appearance (Clear) Urine pH (5.0-8.0) Ur Specific [place] (1.001-1.035) Urine Protein (Negative) Urine Glucose (UA) (Negative) Urine Ketones (Negative) Urine Blood (Negative) Urine Nitrite (Negative) Urine Bilirubin (Negative) Urine Urobilinogen (<2.0) mg/dL Ur Leukocyte Esterase (Negative) Urine RBC (0-5) /hpf Urine WBC (0-5) /hpf Ur Squamous Epith Cells (0-4) /hpf Amorphous Sediment (None) /hpf Urine Bacteria (None) /hpf Hyaline Casts (0-2) /lpf Urine Mucus (None) /hpf Urine HCG, Qual (Not Detectd) Influenza Type A (PCR) Not Detected (Not Detectd) Influenza Type B (PCR) Not Detected (Not Detectd) RSV (PCR) Detected A (Not Detectd) SARS-CoV-2 (PCR) Not Detected (Not Detectd) 09/02/24 09/02/24 09/02/24 Range/Units 19:27 21:05 21:05 WBC (3.8-10.6) k/uL RBC (3.80-5.40) m/uL Hgb (11.4-16.0) gm/dL Hct (34.0-46.0) % MCV (80.0-100.0) fL MCH (25.0-35.0) pg MCHC (31.0-37.0) g/dL RDW (11.5-15.5) % Plt Count (150-450) k/uL MPV Neutrophils % % Lymphocytes % % Monocytes % % Eosinophils % % Basophils % % Neutrophils # (1.3-7.7) k/uL Lymphocytes # (1.0-4.8) k/uL Monocytes # (0-1.0) k/uL Eosinophils # (0-0.7) k/uL Basophils # (0-0.2) k/uL Sodium (137-145) mmol/L Potassium (3.5-5.1) mmol/L Chloride (98-107) mmol/L Carbon Dioxide (22-30) mmol/L Anion Gap mmol/L BUN (7-17) mg/dL Creatinine (0.52-1.04) mg/dL Est GFR (CKD-EPI)AfAm (>60 ml/min/1.73 sqM) Est GFR (CKD-EPI)NonAf (>60 ml/min/1.73 sqM) Glucose (74-99) mg/dL Calcium (8.4-10.2) mg/dL Total Bilirubin (0.2-1.3) mg/dL AST (14-36) U/L ALT (4-34) U/L Alkaline Phosphatase (38-126) U/L Troponin I <0.012 (0.000-0.034) ng/mL Total Protein (6.3-8.2) g/dL Albumin (3.5-5.0) g/dL Urine Color Colorless Urine Appearance Clear (Clear) Urine pH 7.0 (5.0-8.0) Ur Specific [place] 1.006 (1.001-1.035) Urine Protein Negative (Negative) Urine Glucose (UA) Negative (Negative) Urine Ketones Negative (Negative) Urine Blood Trace H (Negative) Urine Nitrite Negative (Negative) Urine Bilirubin Negative (Negative) Urine Urobilinogen <2.0 (<2.0) mg/dL Ur Leukocyte Esterase Large H (Negative) Urine RBC 5 (0-5) /hpf Urine WBC 87 H (0-5) /hpf Ur Squamous Epith Cells 3 (0-4) /hpf Amorphous Sediment Rare H (None) /hpf Urine Bacteria Occasional H (None) /hpf Hyaline Casts 5 H (0-2) /lpf Urine Mucus Rare H (None) /hpf Urine HCG, Qual Not Detected (Not Detectd) Influenza Type A (PCR) (Not Detectd) Influenza Type B (PCR) (Not Detectd) RSV (PCR) (Not Detectd) SARS-CoV-2 (PCR) (Not Detectd) Disposition Clinical Impression: UTI (urinary tract infection), RSV infection Disposition: ADMITTED IP TO THIS HOSP Condition: Fair
--- NOTE | 2024-09-02 18:41 | XR ---
EXAMINATION TYPE: XR chest 2V DATE OF EXAM: 09/02/2024 6:32 PM COMPARISON: None available. CLINICAL INDICATION: Female, 54 years old with history of cough; [facility] TECHNIQUE: XR chest 2V Frontal and lateral views of the chest. FINDINGS: Lungs/Pleura: There is no evidence of pleural effusion, focal consolidation, or pneumothorax. Pulmonary vascularity: Unremarkable. Heart/mediastinum: Cardiomediastinal silhouette is unremarkable. Musculoskeletal: No acute osseous pathology. Other findings: None IMPRESSION: No acute cardiopulmonary disease/process. [facility], , 09/02/2024 6:38 PM
[2024-09-02] MEDS: SODIUM CHLORIDE 0.9% 500 ML 500 ML IV STA ×2 (19:37→22:03)
[2024-09-02 19:57] LABS: Basophils % (A) 0 %; Eosinophils # (A) 0.1 k/uL (0-0.7); Eosinophils % (A) 1 %; HCT 43.3 % (34.0-46.0); Lymphocytes % (A) 20 %; MCH 29.7 pg (25.0-35.0); MCHC 32.2 g/dL (31.0-37.0); MCV 92.3 fL (80.0-100.0); Mean Platelet Volume 8.3; Monocytes # (A) 1.2 k/uL (0-1.0); Monocytes % (A) 8 %; Neutrophils # (A) 10.4 k/uL (1.3-7.7); Neutrophils % (A) 70 %; Platelet Count 493 k/uL (150-450); RBC 4.69 m/uL (3.80-5.40); RDW 12.8 % (11.5-15.5); WBC 14.8 k/uL (3.8-10.6)
[2024-09-02 20:34] LABS: ALT 21 U/L (4-34); AST 26 U/L (14-36); African American GFR (CKD) >90 (>60 ml/min/1.73 sqM); Albumin 4.5 g/dL (3.5-5.0); Alkaline Phosphatase 114 U/L (38-126); Anion Gap 16 mmol/L; Blood Urea Nitrogen 6 mg/dL (7-17); Calcium 9.9 mg/dL (8.4-10.2); Carbon Dioxide 20 mmol/L (22-30); Chloride 102 mmol/L (98-107); Glucose 182 mg/dL (74-99); Non-African American GFR(CKD) >90 (>60 ml/min/1.73 sqM); Potassium 4.6 mmol/L (3.5-5.1); Sodium 138 mmol/L (137-145); Total Bilirubin 0.5 mg/dL (0.2-1.3); Total Protein 7.9 g/dL (6.3-8.2)
[2024-09-02 21:37] LABS: Amorphous Sediment,Urine Rare /hpf; Appearance,Urine Clear (Clear); Bacteria,Urine Occasional /hpf; Bilirubin,Urine Negative (Negative); Blood,Urine Trace (Negative); Color,Urine Colorless; Glucose,Urine (UA) Negative (Negative); Hyaline Casts,Urine 5 /lpf (0-2); Ketones,Urine Negative (Negative); Leukocyte Esterase,Urine Large (Negative); Mucus,Urine Rare /hpf; Nitrite,Urine Negative (Negative); Protein,Urine Negative (Negative); RBC,Urine 5 /hpf (0-5); Specific Gravity,Urine 1.006 (1.001-1.035); Squamous Epithelial Cell,Urine 3 /hpf (0-4); Urobilinogen,Urine <2.0 mg/dL (<2.0); WBC,Urine 87 /hpf (0-5)
[2024-09-02] MEDS ORDERED: ACETAMINOPHEN TAB 325 MG TAB PO PRN (22:46)
[2024-09-02] MEDS ORDERED: NALOXONE 0.4 MG/ML 1 ML VIAL IV PRN (22:46)
[2024-09-02] MEDS: SODIUM CHLORIDE 0.9% 1,000 ML IV SCH (23:11)
[2024-09-03] MEDS: CYCLOBENZAPRINE 5 MG TAB PO SCH (03:24)
[2024-09-03] MEDS: LEVOTHYROXINE 50 MCG TAB PO SCH (05:52)
[2024-09-03] MEDS: HYDROcodone/APAP 7.5-325MG 1 EACH TAB PO SCH (08:15)
[2024-09-03] MEDS: oxyBUTYnin chloride 5 MG TAB PO SCH (08:15)
[2024-09-03] MEDS: FAMOTIDINE 20 MG TAB PO SCH (08:15)
[2024-09-03] MEDS: MAGNESIUM OXIDE 400 MG TAB PO SCH (08:16)
[2024-09-03] MEDS: GABAPENTIN 300 MG CAP PO SCH (08:16)
[2024-09-03] MEDS: PANTOPRAZOLE 40 MG TABLET PO SCH (08:16)
[2024-09-03] MEDS ORDERED: PNEUMONIA PROTOCOL UTILIZED 1 EACH MISC PO PRN (08:25)
[2024-09-03] MEDS ORDERED: IPRATROPIUM-ALBUTEROL 3 ML NEB INHALATION PRN (08:25)
--- NOTE | 2024-09-03 08:56 | XR ---
EXAMINATION TYPE: XR chest 2V DATE OF EXAM: 09/03/2024 8:50 AM COMPARISON: Chest radiograph from one day prior. CLINICAL INDICATION: Female, 54 years old with history of Pneumonia; TECHNIQUE: XR chest 2V Frontal and lateral views of the chest. FINDINGS: Lungs/Pleura: There is no evidence of pleural effusion, focal consolidation, or pneumothorax. Pulmonary vascularity: Unremarkable. Heart/mediastinum: Cardiomediastinal silhouette is unremarkable. Musculoskeletal: No acute osseous pathology. IMPRESSION: No acute cardiopulmonary disease/process. [facility], , 09/03/2024 8:54 AM
[2024-09-03] MEDS ORDERED: CYCLOBENZAPRINE 5 MG TAB PO SCH (09:00)
[2024-09-03] MEDS: ARIPiprazole 10 MG TAB PO SCH (11:54)
--- NOTE | 2024-09-03 12:08 | P.HPIM ---
History of Present Illness H&P Date: 09/03/24 Chief Complaint: cough, shortness of breath * 54-year-old patient with past medical history significant for fibromyalgia, history of rheumatoid arthritis, seizure disorder, psoriasis, gastroesophageal reflux disease, cerebral palsy, mood disorder presents to the emergency [facility] with complaints of cough ongoing for 1 week. Patient was seen outpatient by primary care physician and was given Augmentin however patient states her symptoms have worsened and had intractable cough so EMS was called * for evaluation she does complain of shortness of breath with these par oxysmal's of cough * patient denies hemoptysis associated with cough * at the time of presentation patient was noted to be febrile 100.2 tachycardia heart rate 118 and respiration of 30, saturation of 96% * chest x-ray was obtained which was negative for intrathoracic process * blood work obtained showed CBC with WBC count of 14.8 platelet 493 serum chemistry obtained showed sodium 138 potassium 4.6 BUN 6 creatinine 0.75 * urine analysis showed urine bacteria, large leukocyte esterase * serology obtained was positive for RSV, negative for influenza and COVID REVIEW OF SYSTEMS: CONSTITUTIONAL: Cough, fever, shortness of breath HEENT: No recent visual problems or hearing problems. Denied any sore throat. CARDIOVASCULAR: No chest pain, orthopnea, PND, no palpitations, no syncope. PULMONARY: Cough, fever, shortness of breath GASTROINTESTINAL: No diarrhea, no nausea, no vomiting, no abdominal pain. NEUROLOGICAL: No headaches, no weakness, no numbness. HEMATOLOGICAL: Denies any bleeding or petechiae. GENITOURINARY: Denies any burning micturition, frequency, or urgency. MUSCULOSKELETAL/RHEUMATOLOGICAL: Denies any joint pain, swelling, or any muscle pain. ENDOCRINE: Denies any polyuria or polydipsia. PHYSICAL EXAMINATION: GENERAL: The patient is alert and oriented x3, ill appearance, nasal cannula in place HEENT: Pupils are round and equally reacting to light. EOMI. CARDIOVASCULAR: S1 and S2 present. No murmurs, rubs, or gallops. PULMONARY: Chest is clear to auscultation, no wheezing or crackles. ABDOMEN: Soft, nontender, nondistended, normoactive bowel sounds. No palpable organomegaly. MUSCULOSKELETAL: No joint swelling or deformity. EXTREMITIES: No cyanosis, clubbing, or pedal edema. NEUROLOGICAL: Gross neurological examination did not reveal any focal deficits. Past Medical History Past Medical History: Fibromyalgia, GERD/Reflux, Musculoskeletal Disorder, Rheumatoid Arthritis (RA), Seizure Disorder, Skin Disorder, Thyroid Disorder Additional Past Medical History / Comment(s): cerebral palsy(walks on knees with knee pads), LAST SEIZURE A CHILD, heartburn, constipation, psoriasis, "low blood"-caregiver not sure what is low, History of Any Multi-Drug Resistant Organisms: None Reported Past Surgical History: Joint Replacement, Orthopedic Surgery Additional Past Surgical History / Comment(s): contracture release in groin area, rt hip replacement, partial left hip replacement,growth removed rt knee, Past Anesthesia/Blood Transfusion Reactions: Family History of Problems w/ Anesthesia Additional Past Anesthesia/Blood Transfusion Reaction / Comment(s): mother had issues w/waking up from anesthesia Past Psychological History: Depression Smoking Status: Never smoker Past Alcohol Use History: Rare Past Drug Use History: None Reported - Past Family History Mother Family Medical History: No Reported History Medications and Allergies Home Medications Medication Instructions Recorded Confirmed Type DULoxetine HCL [Cymbalta] 60 mg PO DAILY 06/11/17 01/30/21 History Gabapentin [Neurontin] 300 mg PO BID 06/11/17 01/30/21 History HYDROcodone/APAP 7.5-325MG [[place] 1 tab PO TID 06/11/17 01/30/21 History 7.5-325] Loratadine [Claritin] 10 mg PO DAILY 06/11/17 01/30/21 History traZODone HCL 100 mg PO HS 06/11/17 01/30/21 History Ascorbic Acid [Vitamin C] 1,000 mg PO DAILY 11/26/20 01/30/21 History Black Cohosh 80 mg PO DAILY 11/26/20 01/30/21 History Ergocalciferol [Vitamin D2 (1250 1,250 mcg PO [place] 11/26/20 01/30/21 History Mcg = 71894 Iu)] Magnesium Oxide [Jade] 500 mg PO DAILY 11/26/20 01/30/21 History Multivitamins, Thera [Multivitamin 1 tab PO DAILY 11/26/20 01/30/21 History (formulary)] Omeprazole 20 mg PO BID 11/26/20 01/30/21 History Turmeric Root Extract [Turmeric] 500 mg PO DAILY 11/26/20 01/30/21 History oxyBUTYnin chloride [Ditropan] 5 mg PO QAM 11/26/20 01/30/21 History ARIPiprazole [Abilify] 10 mg PO DAILY 01/06/21 01/30/21 History Betamethasone Dipropionate 1 applic TOPICAL DAILY 01/06/21 01/30/21 History [Betamethasone Dipropionate 0.05%] Cyclobenzaprine [Flexeril] 5 mg PO TID 01/06/21 01/30/21 History Fluocinonide 0.05% [Lidex 0.05% 15 applic TOPICAL DAILY 01/06/21 01/30/21 History cream] Levothyroxine Sodium [Synthroid] 50 mcg PO DAILY 01/06/21 01/30/21 History Acetaminophen Oral Susp [Tylenol 500 mg PO Q4-6H PRN #400 ml 02/08/21 Rx Oral Susp] Allergies Allergy/AdvReac Type Severity Reaction Status Date / Time No Known Allergies Allergy Verified 09/02/24 18:15 Physical Exam Vitals: Vital Signs Temp Pulse Resp BP Pulse Ox 09/03/24 05:51 97.9 F 108 H 18 112/91 96 09/02/24 22:05 102 H 20 114/77 99 09/02/24 21:11 98.4 F 09/02/24 18:08 100.2 F H 118 H 30 H 122/104 96 Intake and Output 09/02/24 09/03/24 09/03/24 22:59 06:59 14:59 Other: Weight 58.967 kg Results CBC & Chem 7: 09/02/24 19:27 09/02/24 19:27 Labs: Abnormal Lab Results - Last 24 Hours (Table) 09/02/24 09/02/24 09/02/24 Range/Units 18:28 19:27 19:27 WBC 14.8 H (3.8-10.6) k/uL Plt Count 493 H (150-450) k/uL Neutrophils # 10.4 H (1.3-7.7) k/uL Monocytes # 1.2 H (0-1.0) k/uL Carbon Dioxide 20 L (22-30) mmol/L BUN 6 L (7-17) mg/dL Glucose 182 H (74-99) mg/dL Urine Blood (Negative) Ur Leukocyte Esterase (Negative) Urine WBC (0-5) /hpf Amorphous Sediment (None) /hpf Urine Bacteria (None) /hpf Hyaline Casts (0-2) /lpf Urine Mucus (None) /hpf RSV (PCR) Detected A (Not Detectd) 09/02/24 Range/Units 21:05 WBC (3.8-10.6) k/uL Plt Count (150-450) k/uL Neutrophils # (1.3-7.7) k/uL Monocytes # (0-1.0) k/uL Carbon Dioxide (22-30) mmol/L BUN (7-17) mg/dL Glucose (74-99) mg/dL Urine Blood Trace H (Negative) Ur Leukocyte Esterase Large H (Negative) Urine WBC 87 H (0-5) /hpf Amorphous Sediment Rare H (None) /hpf Urine Bacteria Occasional H (None) /hpf Hyaline Casts 5 H (0-2) /lpf Urine Mucus Rare H (None) /hpf RSV (PCR) (Not Detectd) Assessment and Plan Assessment: assessment and plan * Acute hypoxic respiratory failure * tracheobronchitis with RSV infection * acute RSV infection * viral sepsis * history of cerebral palsy * hypothyroid * gastroesophageal reflux disease * in regards to acute hypoxic respiratory failure continue with oxygen supplementation, wean off as tolerated, breathing treatments initiated * in regards to tracheobronchitis, continue Robitussin, Rocephin and azithromycin ordered, for concern for superimposed bacterial infection, pulmonary medicine consulted as well * in regards to hypothyroid continue Synthyroid * in regards to sepsis, likely secondary to underlying RSV infection, blood cultures ordered continue Rocephin and azithromycin due to concern for superimposed bacterial infection, urine Legionella streptococcal antigen ordered * subcu heparin for DVT prophylaxis * CODE STATUS is full code * Time with Patient: Greater than 30
[2024-09-03] MEDS: ONDANSETRON 4 MG/2 ML VIAL IVP PRN (17:43)
[2024-09-03] MEDS: ERGOCALCIFEROL 1,250 MCG (50,000 IU) CAPSULE PO SCH (17:43)
[2024-09-03] MEDS: HEPARIN SODIUM,PORCINE 5,000 UNIT/ML 1 ML VIAL SQ SCH (17:43)
[2024-09-03] MEDS: guaiFENesin-Coden 100-10MG/5ML 10 ML CUP PO PRN (17:44)
[2024-09-03] MEDS: traZODone HCL 50 MG TAB PO SCH (22:46)
--- NOTE | 2024-09-04 02:44 | P.CNPUL ---
History of Present Illness Consult date: 09/04/24 Requesting physician: Shelly Pearce Reason for consult: dyspnea, hypoxemia Chief complaint: Shortness of breath, cough History of present illness: Patient is a 54-year-old white female with past medical history significant for cerebral palsy, seizure disorder, depression, GERD, hypothyroidism. She presented to the emergency department back on 09/02/2024 with a chief complaint of intractable cough and associated shortness of breath. Cough has been ongoing for almost 1 week. Reportedly treated with Augmentin on outpatient basis. Despite this, symptoms did not improve. Friend called EMS during a coughing spell and she had trouble catching her breath. Placed on 2 L/min nasal cannula on arrival. Did have documented low-grade temperature of 100.2 F. Viral screen noted to be RSV positive. Chest x-ray did not show any acute infiltrates or evidence of pneumonia. CBC is unremarkable other than leukocytosis with a WBC count of 14.8. CMP is unremarkable. Urinalysis positive for leukocytes and bacteria. Placed empirically on antibiotics in the ED. Patient is currently being evaluated on the general medical floor. She is on 2 L/min nasal cannula, no acute distress. She is able to provide a limited history. States that she has chest congestion along with a mostly nonproductive cough. Robitussin seems to be helping. She is tolerating oral intake. No nausea or vomiting or diarrhea. Current vitals: Temperature 97.3 F, heart rate 67 bpm, blood pressure 101/74 mmHg, SpO2 98% on 2 L/min nasal cannula. Review of Systems Constitutional: Reports fatigue, Reports fever, Denies chills, Denies poor appetite, Denies sweats Ears, nose, mouth and throat: Denies headache, Denies nasal congestion, Denies nasal discharge, Denies post-nasal drip, Denies sinus pressure, Denies sore throat Cardiovascular: Denies chest pain, Denies leg edema, Denies orthopnea, Denies palpitations, Denies paroxysmal nocturnal dyspnea, Denies syncope Respiratory: Reports congestion, Reports cough, Reports dyspnea, Denies cough with sputum, Denies excessive sputum, Denies home oxygen, Denies wheezing Gastrointestinal: Denies abdominal pain, Denies change in bowel habits, Denies diarrhea, Denies loss of appetite, Denies nausea, Denies vomiting Genitourinary: Denies dysuria, Denies flank pain, Denies hematuria, Denies urinary frequency Musculoskeletal: Reports gait dysfunction, Reports limitation of motion Integumentary: Denies rash, Denies wounds Neurological: Reports gait dysfunction, Reports motor disturbance, Reports trem ors, Reports weakness Psychiatric: Reports depression, Denies anxiety, Denies suicidal ideation Past Medical History Past Medical History: Fibromyalgia, GERD/Reflux, Musculoskeletal Disorder, Rheumatoid Arthritis (RA), Seizure Disorder, Skin Disorder, Thyroid Disorder Additional Past Medical History / Comment(s): cerebral palsy(walks on knees with knee pads), LAST SEIZURE A CHILD, heartburn, constipation, psoriasis, "low blood"-caregiver not sure what is low, History of Any Multi-Drug Resistant Organisms: None Reported Past Surgical History: Joint Replacement, Orthopedic Surgery Additional Past Surgical History / Comment(s): contracture release in groin area, rt hip replacement, partial left hip replacement,growth removed rt knee, Past Anesthesia/Blood Transfusion Reactions: Family History of Problems w/ Anesthesia Additional Past Anesthesia/Blood Transfusion Reaction / Comment(s): mother had issues w/waking up from anesthesia Past Psychological History: Depression Smoking Status: Never smoker Past Alcohol Use History: Rare Past Drug Use History: None Reported - Past Family History Mother Family Medical History: No Reported History Medications and Allergies Home Medications Medication Instructions Recorded Confirmed Type DULoxetine HCL [Cymbalta] 60 mg PO DAILY 06/11/17 09/04/24 History Gabapentin [Neurontin] 300 mg PO BID 06/11/17 09/04/24 History HYDROcodone/APAP 7.5-325MG [[place] 1 tab PO TID 06/11/17 09/04/24 History 7.5-325] Loratadine [Claritin] 10 mg PO DAILY 06/11/17 09/04/24 History traZODone HCL 50 - 100 mg PO HS 06/11/17 09/04/24 History Ascorbic Acid [Vitamin C] 1,500 mg PO DAILY 11/26/20 09/04/24 History Ergocalciferol [Vitamin D2 (1250 1,250 mcg PO Q7D 11/26/20 09/04/24 History Mcg = 84024 Iu)] Magnesium Oxide [Jade] 500 mg PO DAILY 11/26/20 09/04/24 History Multivitamins, Thera [Multivitamin 1 tab PO DAILY 11/26/20 09/04/24 History (formulary)] Omeprazole 40 mg PO DAILY 11/26/20 09/04/24 History Cyclobenzaprine [Flexeril] 5 mg PO TID 01/06/21 09/04/24 History ARIPiprazole [Abilify] 15 mg PO DAILY 09/04/24 09/04/24 History Alendronate Sodium [Fosamax] 70 mg PO WEEKLY 09/04/24 09/04/24 History Amoxic-Pot Clav 875-125Mg 1 tab PO BID 09/04/24 09/04/24 History [Augmentin 875-125] Docusate [Colace] 100 mg PO DAILY 09/04/24 09/04/24 History Famotidine [Pepcid] 40 mg PO DAILY 09/04/24 09/04/24 History Fluocinonide [Lidex 0.05%] 1 applic TOPICAL BID 09/04/24 09/04/24 History Ketoconazole 2% Shampoo [Nizoral] 1 applic TOPICAL Q48H 09/04/24 09/04/24 History Levothyroxine Sodium [Synthroid] 100 mcg PO DAILY 09/04/24 09/04/24 History Oxybutynin Chloride [oxyBUTYnin 30 mg PO DAILY 09/04/24 09/04/24 History chloride ER] Triamcinolone 0.1% Ointment 1 applic TOPICAL BID PRN 09/04/24 09/04/24 History [Kenalog 0.1% Ointment] Allergies Allergy/AdvReac Type Severity Reaction Status Date / Time No Known Allergies Allergy Verified 09/02/24 18:15 Physical Exam Vitals: Vital Signs Temp Pulse Pulse Resp BP BP Pulse Ox 09/03/24 19:22 97.3 F L 67 19 101/74 98 09/03/24 14:08 98.1 F 88 17 139/70 99 09/03/24 07:54 97.5 F L 109 H 18 92/61 96 09/03/24 05:51 97.9 F 108 H 18 112/91 96 Intake and Output 09/03/24 09/03/24 09/04/24 14:59 22:59 06:59 Output Total 675 250 Balance -675 -250 Output: Urine 675 250 Other: Voiding Method External Catheter External Catheter Weight 58.967 kg GENERAL EXAM: Alert, 54-year-old disabled female, comfortable in no apparent distress. HEAD: Normocephalic and atraumatic EYES: Normal reaction of pupils, equal size. NOSE: Clear with pink turbinates. THROAT: No erythema or exudates. NECK: No masses, no JVD. CHEST: No chest wall deformity. LUNGS: Equal air entry with no crackles, wheeze, rhonchi or dullness. On 2 L/min nasal cannula. No conversational dyspnea or accessory muscle use. There is persistent congested nonproductive cough. CVS: S1 and S2 normal with no audible murmur, regular rhythm. No extra heart sounds ABDOMEN: No hepatosplenomegaly, active bowel sounds, no guarding or rigidity. SPINE: No scoliosis or deformity SKIN: No rashes CENTRAL NERVOUS SYSTEM: Alert and oriented x 3. Garbled speech, extremity contra ctures EXTREMITIES: There is no peripheral edema, clubbing, or cyanosis. Peripheral pulses are intact. Results - Laboratory Findings CBC and BMP: 09/04/24 03:41 09/04/24 03:41 Abnormal lab findings: Abnormal Labs 09/02/24 09/02/24 09/02/24 18:28 19:27 19:27 WBC 14.8 H Plt Count 493 H Neutrophils # 10.4 H Monocytes # 1.2 H Carbon Dioxide 20 L BUN 6 L Glucose 182 H Urine Blood Ur Leukocyte Esterase Urine WBC Amorphous Sediment Urine Bacteria Hyaline Casts Urine Mucus RSV (PCR) Detected A 09/02/24 21:05 WBC Plt Count Neutrophils # Monocytes # Carbon Dioxide BUN Glucose Urine Blood Trace H Ur Leukocyte Esterase Large H Urine WBC 87 H Amorphous Sediment Rare H Urine Bacteria Occasional H Hyaline Casts 5 H Urine Mucus Rare H RSV (PCR) - Diagnostic Findings Chest x-ray: image reviewed Assessment and Plan Assessment: Acute viral bronchitis, secondary to RSV infection Acute hypoxemic respiratory failure, secondary to above Acute leukocytosis History of GERD History of cerebral palsy History of depression Plan: Patient's medications, labs, chest x-ray reviewed Viral screen positive for RSV Chest x-ray does not show any focal infiltrates or obvious superimposed p neumonia. Continue supplemental oxygen maintain oxygen saturation 92% or greater Continue supportive care with as needed bronchodilators, antitussive, and Tylenol for fever Patient currently being covered with empiric antibiotics in the form of azithromycin and Rocephin for possible superimposed bacterial infection, although felt to be less likely. Check procalcitonin We will continue to follow, further recommendations to follow. I have personally seen and examined the patient, performed the documentation and the assessment and plan as written. Number of minutes spent on the visit:20 This evaluation was done and more than 30 minutes. This is a joint evaluation that was done along with the nurse practitioner. In summary, the patient has an acute viral bronchitis with RSV. She has cerebral palsy. She has a weak cough. Her swallow is also questionable at this to be further investigated. Bedside swallow evaluation to be done today. Chest x-ray is not showing any acute abnormalities. The patient pulse ox 95% on 2 L of oxygen by nasal cannula. She is currently afebrile. The patient is maintained on DuoNeb nebulized treatments [id number], Tessalon Perles and her home medications have been resumed. She may also benefit from steroids as the patient is having intra ctable cough along with some limited shortness of breath. Will start the patient on Solu-Medrol 40 mg every 8 hours. Will monitor her progress. Time with Patient: Greater than 30
[2024-09-04] MEDS: AZITHROMYCIN 500 MG TAB PO SCH (08:41)
[2024-09-04 08:42] LABS: Basophils # (A) 0.03 X 10*3/uL (0.00-0.10); Basophils % (A) 0.4 %; HCT 37.3 % (37.2-46.3); HGB 11.5 g/dL (12.0-15.0); Lymphocytes # (A) 2.61 X 10*3/uL (0.90-5.00); Lymphocytes % (A) 34.4 %; MCHC 30.8 g/dL (32.0-37.0); Mean Platelet Volume 11.2 FL (9.5-12.2); Monocytes # (A) 0.65 X 10*3/uL (0.20-1.00); Monocytes % (A) 8.6 %; NRBC Per 100 WBC 0.03 X 10*3/uL (0.00-0.01); Neutrophils # (A) 3.98 X 10*3/uL (1.80-7.70); Neutrophils % (A) 52.3 %; Platelet Count 355 X 10*3/uL (140-440); RBC 3.97 X 10*6/uL (4.10-5.20); RDW 13.6 % (11.5-14.5); WBC 7.59 X 10*3/uL (4.50-10.00)
[2024-09-04 08:50] LABS: Blood Urea Nitrogen 4.4 mg/dL (9.0-27.0); Calcium 8.6 mg/dL (8.7-10.3); Carbon Dioxide 25.3 mmol/L (21.6-31.8); Chloride 108 mmol/L (96-109); Glucose 97 mg/dL (70-110); Potassium 5.5 mmol/L (3.5-5.5); Sodium 140 mmol/L (135-145)
[2024-09-04 13:31] VITALS: BMI 22.3
[2024-09-04] MEDS: BENZONATATE 100 MG CAP PO PRN (13:45)
--- NOTE | 2024-09-04 16:44 | P.PN ---
Subjective Progress Note Date: 09/04/24 This is a cerebral palsy patient bed ridden admitted with acute hypoxic respiratory failure secondary to acute tracheobronchitis and RSV infection and multiple other medical issues. Reports she is breathing better this morning, minimal nonproductive cough. Denies chills sweats or bodyaches. Denies incre ased shortness of breath. Denies chest pain palpitations.Continues on azithromycin and ceftriaxone, nebulized bronchodilators. Does not wear oxygen at home, currently requiring 2 L nasal cannula to maintain O2 sats mid 90s to high 90s O2 saturation. Afebrile, normal WBC. Hemoglobin 11.5, platelets 355, sodium 140, potassium 5.5, bicarb 25.3, BUN 4.4, creatinine 0.5, glucose 97. Procalcitonin negative. Objective - Vital Signs Vital signs: Vital Signs Temp 98.5 F 09/04/24 13:41 Pulse 111 H 09/04/24 13:41 Resp 20 09/04/24 13:41 BP 107/70 09/04/24 13:41 Pulse Ox 95 09/04/24 13:41 FiO2 Intake & Output 09/03/24 09/04/24 09/04/24 18:59 06:59 18:59 Intake Total 120 Output Total 925 300 300 Balance -925 -300 -180 Weight 58.967 kg 58.967 kg Intake: Oral 120 Output: Urine 925 300 300 Other: Voiding Method External Catheter External Catheter External Catheter # Voids 1 - Exam PHYSICAL EXAMINATION: GENERAL: Cerebral palsy patient, bed ridden, garbled speech ,no acute distress HEENT: Pupils are round and equally reacting to light. EOMI. CARDIOVASCULAR: S1 and S2 present. No murmurs, rubs, or gallops. PULMONARY: Chest is clear to auscultation, no wheezing or crackles. ABDOMEN: Soft, nontender, nondistended, normoactive bowel sounds. No palpable organomegaly. EXTREMITIES: No cyanosis, clubbing, or pedal edema. NEUROLOGICAL: Alert and oriented x 3, extremity contractures. - Labs CBC & Chem 7: 09/05/24 03:59 09/05/24 03:59 Labs: Abnormal Lab Results - Last 24 Hours (Table) 09/04/24 09/04/24 Range/Units 03:41 03:41 RBC 3.97 L (4.10-5.20) X 10*6/uL Hgb 11.5 L (12.0-15.0) g/dL MCHC 30.8 L (32.0-37.0) g/dL NRBC/100 WBC Diff 0.03 H (0.00-0.01) X 10*3/uL BUN 4.4 L (9.0-27.0) mg/dL Creatinine 0.5 L (0.6-1.5) mg/dL BUN/Creatinine Ratio 8.80 L (12.00-20.00) Ratio Calcium 8.6 L (8.7-10.3) mg/dL Microbiology - Last 24 Hours (Table) 09/02/24 19:27 Blood Culture - Preliminary Blood Assessment and Plan Assessment: Acute tracheobronchitis with RSV, pneumonia ruled out as per pulmonary. Acute respiratory failure secondary to the above Acute leukocytosis, resolved Cerebral palsy Hypothyroidism Gastroesophageal reflux disease Plan: Continue on current medication resume ,monitoring and symptomatic treatment. Swallow evaluation with speech therapy pending. Aggressive pulmonary toileting with nebulized bronchodilators, antitussive. Pro-William negative, DC Rocephin. The impression and plan of care has been dictated as directed. : I performed a history and examination of this patient, discussed the same with the dictator. I agree with the dictator's note ,documented as a scribe. Any additional findings or plans will be noted.
[2024-09-05] MEDS: LEVOTHYROXINE 100 MCG TAB PO SCH (06:05)
[2024-09-05] MEDS: OXYBUTYNIN 15 MG TAB.ER.24 PO SCH (08:28)
[2024-09-05] MEDS: ARIPiprazole 15 MG TAB PO SCH (08:28)
[2024-09-05 09:02] LABS: Blood Urea Nitrogen 5.4 mg/dL (9.0-27.0); Calcium 8.6 mg/dL (8.7-10.3); Chloride 107 mmol/L (96-109); Glucose 94 mg/dL (70-110); Potassium 4.5 mmol/L (3.5-5.5); Sodium 141 mmol/L (135-145)
[2024-09-05 09:16] LABS: Basophils # (A) 0.03 X 10*3/uL (0.00-0.10); Basophils % (A) 0.4 %; HCT 35.6 % (37.2-46.3); HGB 11.6 g/dL (12.0-15.0); Lymphocytes # (A) 2.87 X 10*3/uL (0.90-5.00); MCH 30.1 pg (27.0-32.0); MCHC 32.6 g/dL (32.0-37.0); MCV 92.5 FL (80.0-97.0); Mean Platelet Volume 11.2 FL (9.5-12.2); Monocytes # (A) 0.67 X 10*3/uL (0.20-1.00); Monocytes % (A) 8.9 %; NRBC Per 100 WBC 0 X 10*3/uL (0.00-0.01); Neutrophils # (A) 3.66 X 10*3/uL (1.80-7.70); Neutrophils % (A) 48.4 %; Platelet Count 388 X 10*3/uL (140-440); RBC 3.85 X 10*6/uL (4.10-5.20); RDW 13.6 % (11.5-14.5); WBC 7.55 X 10*3/uL (4.50-10.00)
--- NOTE | 2024-09-05 17:34 | P.PN ---
Subjective Progress Note Date: 09/05/24 This is a cerebral palsy patient bed ridden admitted with acute hypoxic respiratory failure secondary to acute tracheobronchitis and RSV infection and multiple other medical issues. Reports she is breathing better this morning, minimal nonproductive cough. Denies chills sweats or bodyaches. Denies incre ased shortness of breath. Denies chest pain palpitations.Continues on azithromycin and ceftriaxone, nebulized bronchodilators. Does not wear oxygen at home, currently requiring 2 L nasal cannula to maintain O2 sats mid 90s to high 90s O2 saturation. Afebrile, normal WBC. Hemoglobin 11.5, platelets 355, sodium 140, potassium 5.5, bicarb 25.3, BUN 4.4, creatinine 0.5, glucose 97. Procalcitonin normal. 09/05/2024 breathing improving, maintaining O2 sats in the 90s on 2 L nasal cannula. Minimal nonproductive cough. Procalcitonin normal, ceftriaxone discontinued. Afebrile normal WBC. Renal function stable. Denies chest pain, palpitations. Denies increase in shortness of breath. Objective - Vital Signs Vital signs: Vital Signs Temp 97.6 F 09/05/24 13:11 Pulse 87 09/05/24 13:11 Resp 16 09/05/24 13:11 BP 142/93 09/05/24 13:11 Pulse Ox 98 09/05/24 13:11 FiO2 Intake & Output 09/04/24 09/05/24 09/05/24 18:59 06:59 18:59 Intake Total 120 Output Total 300 500 Balance -180 -500 Weight 58.967 kg Intake: Oral 120 Output: Urine 300 500 Other: Voiding Method External Catheter External Catheter External Catheter - Exam PHYSICAL EXAMINATION: GENERAL: Cerebral palsy patient, bed ridden, garbled speech ,no acute distress HEENT: Pupils are round and equally reacting to light. EOMI. CARDIOVASCULAR: S1 and S2 present. No murmurs, rubs, or gallops. PULMONARY: Unlabored, equal air entry, chest is clear to auscultation, no wheezing or crackles. ABDOMEN: Soft, nontender, nondistended, normoactive bowel sounds. EXTREMITIES: No cyanosis, clubbing, or pedal edema. NEUROLOGICAL: Alert and oriented x 3, extremity contractures. - Labs CBC & Chem 7: 09/05/24 03:59 09/05/24 03:59 Labs: Abnormal Lab Results - Last 24 Hours (Table) 09/05/24 09/05/24 Range/Units 03:59 03:59 RBC 3.85 L (4.10-5.20) X 10*6/uL Hgb 11.6 L (12.0-15.0) g/dL Hct 35.6 L (37.2-46.3) % BUN 5.4 L (9.0-27.0) mg/dL Creatinine 0.5 L (0.6-1.5) mg/dL BUN/Creatinine Ratio 10.80 L (12.00-20.00) Ratio Calcium 8.6 L (8.7-10.3) mg/dL Microbiology - Last 24 Hours (Table) 09/03/24 11:13 Blood Culture - Preliminary Blood 09/02/24 19:27 Blood Culture - Preliminary Blood Assessment and Plan Assessment: Acute tracheobronchitis with RSV, pneumonia ruled out as per pulmonary. Acute respiratory failure secondary to the above Acute leukocytosis, resolved Cerebral palsy Hypothyroidism Gastroesophageal reflux disease Plan: Continue on current medication resume ,monitoring and symptomatic treatment.maintain aggressive pulmonary toileting with nebulized bronchodilators, antitussive, empiric antibiotics. Follow closely with pulmo priscilay. The impression and plan of care has been dictated as directed. : I performed a history and examination of this patient, discussed the same with the dictator. I agree with the dictator's note ,documented as a scribe. Any additional findings or plans will be noted.
--- NOTE | 2024-09-05 19:21 | P.PN ---
Subjective Progress Note Date: 09/05/24 Patient is a 54-year-old white female with past medical history significant for cerebral palsy, seizure disorder, depression, GERD, hypothyroidism. She presented to the emergency department back on 09/02/2024 with a chief complaint of intractable cough and associated shortness of breath. Cough has been ongoing for almost 1 week. Reportedly treated with Augmentin on outpatient basis. Despite this, symptoms did not improve. Friend called EMS during a coughing spell and she had trouble catching her breath. Placed on 2 L/min nasal cannula on arrival. Did have documented low-grade temperature of 100.2 F. Viral screen noted to be RSV positive. Chest x-ray did not show any acute infiltrates or evidence of pneumonia. CBC is unremarkable other than leukocytosis with a WBC count of 14.8. CMP is unremarkable. Urinalysis positive for leukocytes and bacteria. Placed empirically on antibiotics in the ED. Patient is currently being evaluated on the general medical floor. She is on 2 L/min nasal cannula, no acute distress. She is able to provide a limited history. States that she has chest congestion along with a mostly nonproductive cough. Robitussin seems to be helping. She is tolerating oral intake. No nausea or vomiting or diarrhea. Current vitals: Temperature 97.3 F, heart rate 67 bpm, blood pressure 101/74 mmHg, SpO2 98% on 2 L/min nasal cannula. On 09/05/2024, the patient is feeling more comfortable and her cough has somewhat subsided compared to yesterday. No new complaints. The patient's procalcitonin level has been normal and the patient was taken off of the IV Rocephin. . Afebrile. Hemodynamically stable. Denies having any significant shortness of breath. Remains on 2 L of oxygen by nasal cannula with a pulse ox of 98%. The white cell count of 7.5 with a hemoglobin 11.6 and a platelet count of 388. The sodium is at 141, BUN is 5.4 with a creatinine of 0.5 and a serum bicarbonate of 27. The patient is on DuoNeb nebulized treatments [id number]. Objective - Vital Signs Vital signs: Vital Signs Temp 97.0 F L 09/05/24 06:47 Pulse 67 09/05/24 06:47 Resp 16 09/05/24 06:47 BP 117/81 09/05/24 06:47 Pulse Ox 98 09/05/24 06:47 FiO2 Intake & Output 09/04/24 09/05/24 09/05/24 18:59 06:59 18:59 Intake Total 120 Output Total 300 500 Balance -180 -500 Weight 58.967 kg Intake: Oral 120 Output: Urine 300 500 Other: Voiding Method External Catheter External Catheter External Catheter - Exam GENERAL EXAM: Alert, 54-year-old disabled female, comfortable in no apparent distress. HEAD: Normocephalic and atraumatic EYES: Normal reaction of pupils, equal size. NOSE: Clear with pink turbinates. THROAT: No erythema or exudates. NECK: No masses, no JVD. CHEST: No chest wall deformity. LUNGS: Equal air entry with no crackles, wheeze, rhonchi or dullness. On 2 L/min nasal cannula. No conversational dyspnea or accessory muscle use. There is persistent congested nonproductive cough. CVS: S1 and S2 normal with no audible murmur, regular rhythm. No extra heart sounds ABDOMEN: No hepatosplenomegaly, active bowel sounds, no guarding or rigidity. SPINE: No scoliosis or deformity SKIN: No rashes CENTRAL NERVOUS SYSTEM: Alert and oriented x 3. Garbled speech, extremity contractures EXTREMITIES: There is no peripheral edema, clubbing, or cyanosis. Peripheral pulses are intact. - Labs CBC & Chem 7: 09/05/24 03:59 09/05/24 03:59 Labs: Abnormal Lab Results - Last 24 Hours (Table) 09/05/24 09/05/24 Range/Units 03:59 03:59 RBC 3.85 L (4.10-5.20) X 10*6/uL Hgb 11.6 L (12.0-15.0) g/dL Hct 35.6 L (37.2-46.3) % BUN 5.4 L (9.0-27.0) mg/dL Creatinine 0.5 L (0.6-1.5) mg/dL BUN/Creatinine Ratio 10.80 L (12.00-20.00) Ratio Calcium 8.6 L (8.7-10.3) mg/dL Microbiology - Last 24 Hours (Table) 09/03/24 11:13 Blood Culture - Preliminary Blood 09/02/24 19:27 Blood Culture - Preliminary Blood Assessment and Plan Assessment: Acute viral bronchitis, secondary to RSV infection, improving and the cough is subsiding and the patient has no significant shortness of breath Acute hypoxemic respiratory failure, secondary to above, currently on 2 L of oxygen by nasal cannula Acute leukocytosis, improving History of GERD History of cerebral palsy History of depression Plan: Titrate oxygen flow to maintain saturation above 90%, currently on 2 L Viral screen positive for RSV Chest x-ray does not show any focal infiltrates or obvious superimposed pneumonia. Continue supportive care with as needed bronchodilators, antitussive, and T ylenol for fever Patient Procalcitonin level is not elevated Antibiotics and be discontinued Start the patient on prednisone burst taper starting with 40 mg p.o. daily We will continue to follow, further recommendations to follow.
[2024-09-05] MEDS: predniSONE 20 MG TAB PO SCH (20:07)
[2024-09-06 08:56] VITALS: RESP 17
[2024-09-06 14:49] VITALS: BP 144/77; PULSE 104; TEMP 97.3
--- NOTE | 2024-09-06 16:52 | P.PN ---
Subjective Progress Note Date: 09/06/24 Patient is a 54-year-old white female with past medical history significant for cerebral palsy, seizure disorder, depression, GERD, hypothyroidism. She presented to the emergency department back on 09/02/2024 with a chief complaint of intractable cough and associated shortness of breath. Cough has been ongoing for almost 1 week. Reportedly treated with Augmentin on outpatient basis. Despite this, symptoms did not improve. Friend called EMS during a coughing spell and she had trouble catching her breath. Placed on 2 L/min nasal cannula on arrival. Did have documented low-grade temperature of 100.2 F. Viral screen noted to be RSV positive. Chest x-ray did not show any acute infiltrates or evidence of pneumonia. CBC is unremarkable other than leukocytosis with a WBC count of 14.8. CMP is unremarkable. Urinalysis positive for leukocytes and bacteria. Placed empirically on antibiotics in the ED. Patient is currently being evaluated on the general medical floor. She is on 2 L/min nasal cannula, no acute distress. She is able to provide a limited history. States that she has chest congestion along with a mostly nonproductive cough. Robitussin seems to be helping. She is tolerating oral intake. No nausea or vomiting or diarrhea. Current vitals: Temperature 97.3 F, heart rate 67 bpm, blood pressure 101/74 mmHg, SpO2 98% on 2 L/min nasal cannula. On 09/05/2024, the patient is feeling more comfortable and her cough has somewhat subsided compared to yesterday. No new complaints. The patient's procalcitonin level has been normal and the patient was taken off of the IV Rocephin. . Afebrile. Hemodynamically stable. Denies having any significant shortness of breath. Remains on 2 L of oxygen by nasal cannula with a pulse ox of 98%. The white cell count of 7.5 with a hemoglobin 11.6 and a platelet count of 388. The sodium is at 141, BUN is 5.4 with a creatinine of 0.5 and a serum bicarbonate of 27. The patient is on DuoNeb nebulized treatments [id number]. On 09/06/2024, the patient is on room air oxygen with a pulse ox of 95%. No significant respiratory distress. Her cough is subsided. She is currently on steroids and the patient is to be discharged on a prednisone burst taper. No other significant events overnight. No aspiration. The white cell count 7.5 with a hemoglobin 11.6 and a platelet count of 388. BUN is 5 with a creatinine of 0.5. Electrolytes are all within normal limits. Objective - Vital Signs Vital signs: Vital Signs Temp 98.3 F 09/06/24 07:25 Pulse 99 09/06/24 07:25 Resp 17 09/06/24 07:25 BP 139/72 09/06/24 07:25 Pulse Ox 98 09/06/24 07:25 FiO2 Intake & Output 09/05/24 09/06/24 09/06/24 18:59 06:59 18:59 Output Total 1500 Balance -1500 Output: Urine 1500 Other: Voiding Method External Catheter External Catheter # Voids 1 200 - Exam GENERAL EXAM: Alert, 54-year-old disabled female, comfortable in no apparent d istress., The patient is on room air oxygen HEAD: Normocephalic and atraumatic EYES: Normal reaction of pupils, equal size. NOSE: Clear with pink turbinates. THROAT: No erythema or exudates. NECK: No masses, no JVD. CHEST: No chest wall deformity. LUNGS: Equal air entry with no crackles, wheeze, rhonchi or dullness. No conversational dyspnea or accessory muscle use. CVS: S1 and S2 normal with no audible murmur, regular rhythm. No extra heart sounds ABDOMEN: No hepatosplenomegaly, active bowel sounds, no guarding or rigidity. SPINE: No scoliosis or deformity SKIN: No rashes CENTRAL NERVOUS SYSTEM: Alert and oriented x 3. Garbled speech, extremity contractures EXTREMITIES: There is no peripheral edema, clubbing, or cyanosis. Peripheral pulses are intact. - Labs CBC & Chem 7: 09/05/24 03:59 09/05/24 03:59 Labs: Microbiology - Last 24 Hours (Table) 09/03/24 11:13 Blood Culture - Preliminary Blood 09/02/24 19:27 Blood Culture - Preliminary Blood Assessment and Plan Assessment: Acute viral bronchitis, secondary to RSV infection, improving and the cough is subsiding and the patient has no significant shortness of breath, clinically improved Acute hypoxemic respiratory failure, secondary to above, currently on room air oxygen Acute leukocytosis, improving History of GERD History of cerebral palsy History of depression Plan: Patient is on room air oxygen Viral screen positive for RSV Chest x-ray does not show any focal infiltrates or obvious superimposed pneumonia. Procalcitonin level is not elevated Antibiotics and be discontinued To be discharged on a prednisone burst taper
--- NOTE | 2024-09-07 14:36 | P.DS ---
Providers Date of admission: 09/02/24 22:47 Expected date of discharge: 09/06/24 Attending physician: Martín Saini MD Consults: 09/03/24 12:08 Consult Physician Routine Consulting Provider: Roque Stevens Consult Reason/Comments: Acute hypoxic respiratory failure RSV tracheobronchitis Do you want consulting provider notified?: Yes Primary care physician: Alondra Silva Hospital Course: Final Diagnoses: Acute viral bronchitis with RSV, pneumonia ruled out as per pulmonary. Procalcitonin normal. Acute respiratory failure secondary to the above Acute leukocytosis, resolved Cerebral palsy Hypothyroidism Gastroesophageal reflux disease Hospital course:Progress Note Date: 09/05/24 This is a cerebral palsy patient bed ridden admitted with acute hypoxic respiratory failure secondary to acute tracheobronchitis and RSV infection and multiple other medical issues. Reports she is breathing better this morning, minimal nonproductive cough. Denies chills sweats or bodyaches. Denies increased shortness of breath. Denies chest pain palpitations.Continues on azithromycin and ceftriaxone, nebulized bronchodilators. Does not wear oxygen at home, currently requiring 2 L nasal cannula to maintain O2 sats mid 90s to high 90s O2 saturation. Afebrile, normal WBC. Hemoglobin 11.5, platelets 355, sodium 140, potassium 5.5, bicarb 25.3, BUN 4.4, creatinine 0.5, glucose 97. Procalcitonin normal. 09/05/2024 breathing improving, maintaining O2 sats in the 90s on 2 L nasal cannula. Minimal nonproductive cough. Procalcitonin normal, ceftriaxone discontinued. Afebrile normal WBC. Renal function stable. Denies chest pain, palpitations. Denies increase in shortness of breath. Maintained aggressive pulmonary toileting with nebulized bronchodilators, antitussive, empiric antibiotics. Followed closely with pulmonary. 09/06/2024 speech significantly more clear, systolic blood pressure in the 130s. Oxygen has been weaned off, maintaining O2 sats in the mid 90s on room air. Cough minimal. afebrile, normal WBC. Hemoglobin 11.6, platelets 388. Renal function and electrolytes stable. Denies chest pain, palpitations or shortness of breath. Cleared by pulmonary for discharge. Patient will be discharged home today on a steroid taper, in a stable condition with guarded prognosis. The impression and plan of care has been dictated as directed. : I performed a history and examination of this patient, discussed the same with the dictator. I agree with the dictator's note ,documented as a scribe. Any additional findings or plans will be noted. Patient Condition at Discharge: Stable Plan - Discharge Summary Discharge Rx Participant: No New Discharge Prescriptions: New predniSONE 10 mg PO DIRECTED #30 tab Benzonatate [Tessalon Perles] 100 mg PO TID PRN #15 cap PRN Reason: Cough Continue traZODone HCL 50 - 100 mg PO HS HYDROcodone/APAP 7.5-325MG [[place] 7.5-325] 1 tab PO TID Gabapentin [Neurontin] 300 mg PO BID DULoxetine HCL [Cymbalta] 60 mg PO DAILY Loratadine [Claritin] 10 mg PO DAILY Multivitamins, Thera [Multivitamin (formulary)] 1 tab PO DAILY Ergocalciferol [Vitamin D2 (1250 Mcg = 64283 Iu)] 1,250 mcg PO Q7D Magnesium Oxide [Jade] 500 mg PO DAILY Ascorbic Acid [Vitamin C] 1,500 mg PO DAILY Omeprazole 40 mg PO DAILY Cyclobenzaprine [Flexeril] 5 mg PO TID Alendronate Sodium [Fosamax] 70 mg PO WEEKLY ARIPiprazole [Abilify] 15 mg PO DAILY Levothyroxine Sodium [Synthroid] 100 mcg PO DAILY Docusate [Colace] 100 mg PO DAILY Fluocinonide [Lidex 0.05%] 1 applic TOPICAL BID Ketoconazole 2% Shampoo [Nizoral] 1 applic TOPICAL Q48H Famotidine [Pepcid] 40 mg PO DAILY Oxybutynin Chloride [oxyBUTYnin chloride ER] 30 mg PO DAILY Triamcinolone 0.1% Ointment [Kenalog 0.1% Ointment] 1 applic TOPICAL BID PRN PRN Reason: FLARE UP Discontinued Amoxic-Pot Clav 875-125Mg [Augmentin 875-125] 1 tab PO BID Discharge Medication List DULoxetine HCL [Cymbalta] 60 mg PO DAILY 06/11/17 [History] Gabapentin [Neurontin] 300 mg PO BID 06/11/17 [History] HYDROcodone/APAP 7.5-325MG [[place] 7.5-325] 1 tab PO TID 06/11/17 [History] Loratadine [Claritin] 10 mg PO DAILY 06/11/17 [History] traZODone HCL 50 - 100 mg PO HS 06/11/17 [History] Ascorbic Acid [Vitamin C] 1,500 mg PO DAILY 11/26/20 [History] Ergocalciferol [Vitamin D2 (1250 Mcg = 85561 Iu)] 1,250 mcg PO Q7D 11/26/20 [History] Magnesium Oxide [Jade] 500 mg PO DAILY 11/26/20 [History] Multivitamins, Thera [Multivitamin (formulary)] 1 tab PO DAILY 11/26/20 [History] Omeprazole 40 mg PO DAILY 11/26/20 [History] Cyclobenzaprine [Flexeril] 5 mg PO TID 01/06/21 [History] ARIPiprazole [Abilify] 15 mg PO DAILY 09/04/24 [History] Alendronate Sodium [Fosamax] 70 mg PO WEEKLY 09/04/24 [History] Docusate [Colace] 100 mg PO DAILY 09/04/24 [History] Famotidine [Pepcid] 40 mg PO DAILY 09/04/24 [History] Fluocinonide [Lidex 0.05%] 1 applic TOPICAL BID 09/04/24 [History] Ketoconazole 2% Shampoo [Nizoral] 1 applic TOPICAL Q48H 09/04/24 [History] Levothyroxine Sodium [Synthroid] 100 mcg PO DAILY 09/04/24 [History] Oxybutynin Chloride [oxyBUTYnin chloride ER] 30 mg PO DAILY 09/04/24 [History] Triamcinolone 0.1% Ointment [Kenalog 0.1% Ointment] 1 applic TOPICAL BID PRN 09/04/24 [History] Benzonatate [Tessalon Perles] 100 mg PO TID PRN #15 cap 09/06/24 [Rx] predniSONE 10 mg PO DIRECTED #30 tab 09/06/24 [Rx] Follow up Appointment(s)/Referral(s): Martín Saini MD [STAFF PHYSICIAN] - 09/11/24 11:15 am (With martha) Patient Instructions/Handouts: Respiratory Syncytial Virus (DC), Urinary Tract Infection in Women (DC) Discharge Disposition: HOME SELF-CARE
== END 2024-09-06 15:37 | disposition home or self-care (01) ==
LOC: EC 18:06 → 4SSUR 22:47 → INTOOBSV 22:47 → 4SSUR 09-03 06:04
PROVIDERS: ADMIT Family Medicine; ATTEND Family Medicine
DX: J20.5 Acute bronchitis due to respiratory syncytial virus (principal); J96.01 Acute respiratory failure with hypoxia; E03.9 Hypothyroidism, unspecified; K21.9 Gastro-esophageal reflux disease without esophagitis; F32.A Depression, unspecified; G80.9 Cerebral palsy, unspecified; Z74.01 Bed confinement status; Z79.83 Long term (current) use of bisphosphonates; Z79.890 Hormone replacement therapy; Z79.899 Other long term (current) drug therapy
CPT/HCPCS: 96376; 96366; 96372 ×4; 96375; 96365; 99285; 36415; 92610; 80053; 80048 ×2; 87449; 84484; 85025 ×3; 81001; 81025; 87040 ×2; 84145; 87636; 71046 ×2; G0378 ×5; J1644 ×4; J2405 ×2; J0696 ×2; J7512 ×2

== ENCOUNTER 2024-09-07 13:06 | Emergency (ER) | payer MEDICARE, OTHER ==
[2024-09-07 13:13] VITALS: RESP 18; TEMP 97.6
[2024-09-07] MEDS: PANTOPRAZOLE 40 MG/10 ML VIAL IVP STA (13:55)
--- NOTE | 2024-09-07 13:56 | ED ---
General Adult HPI - General Chief complaint: Overdose Stated complaint: Overdose Time Seen by Provider: 09/07/24 13:16 Source: patient, RN notes reviewed, old records reviewed Mode of arrival: ambulatory Limitations: no limitations - History of Present Illness Initial comments: 54-year-old female presenting with accidental ingestion of approximately 300 mg of prednisone, approximately 45 minutes prior to arrival. This was an accidental ingestion. Patient was prescribed this medication for upper respiratory infection. She has no symptoms, feels fine, no nausea vomiting. No epigastric pain. - Related Data Home Medications Medication Instructions Recorded Confirmed DULoxetine HCL [Cymbalta] 60 mg PO DAILY 06/11/17 09/04/24 Gabapentin [Neurontin] 300 mg PO BID 06/11/17 09/04/24 HYDROcodone/APAP 7.5-325MG [[place] 1 tab PO TID 06/11/17 09/04/24 7.5-325] Loratadine [Claritin] 10 mg PO DAILY 06/11/17 09/04/24 traZODone HCL 50 - 100 mg PO HS 06/11/17 09/04/24 Ascorbic Acid [Vitamin C] 1,500 mg PO DAILY 11/26/20 09/04/24 Ergocalciferol [Vitamin D2 (1250 1,250 mcg PO Q7D 11/26/20 09/04/24 Mcg = 81065 Iu)] Magnesium Oxide [Jade] 500 mg PO DAILY 11/26/20 09/04/24 Multivitamins, Thera [Multivitamin 1 tab PO DAILY 11/26/20 09/04/24 (formulary)] Omeprazole 40 mg PO DAILY 11/26/20 09/04/24 Cyclobenzaprine [Flexeril] 5 mg PO TID 01/06/21 09/04/24 ARIPiprazole [Abilify] 15 mg PO DAILY 09/04/24 09/04/24 Alendronate Sodium [Fosamax] 70 mg PO WEEKLY 09/04/24 09/04/24 Docusate [Colace] 100 mg PO DAILY 09/04/24 09/04/24 Famotidine [Pepcid] 40 mg PO DAILY 09/04/24 09/04/24 Fluocinonide [Lidex 0.05%] 1 applic TOPICAL BID 09/04/24 09/04/24 Ketoconazole 2% Shampoo [Nizoral] 1 applic TOPICAL Q48H 09/04/24 09/04/24 Levothyroxine Sodium [Synthroid] 100 mcg PO DAILY 09/04/24 09/04/24 Oxybutynin Chloride [oxyBUTYnin 30 mg PO DAILY 09/04/24 09/04/24 chloride ER] Triamcinolone 0.1% Ointment 1 applic TOPICAL BID PRN 09/04/24 09/04/24 [Kenalog 0.1% Ointment] Previous Rx's Medication Instructions Recorded Benzonatate [Tessalon Perles] 100 mg PO TID PRN #15 cap 09/06/24 predniSONE 10 mg PO DIRECTED #30 tab 09/06/24 Allergies Allergy/AdvReac Type Severity Reaction Status Date / Time No Known Allergies Allergy Verified 09/07/24 13:14 Review of Systems ROS Statement: Those systems with pertinent positive or pertinent negative responses have been documented in the HPI. ROS Other: All systems not noted in ROS Statement are negative. Past Medical History Past Medical History: Fibromyalgia, GERD/Reflux, Musculoskeletal Disorder, Rheumatoid Arthritis (RA), Seizure Disorder, Skin Disorder, Thyroid Disorder Additional Past Medical History / Comment(s): cerebral palsy(walks on knees with knee pads), LAST SEIZURE A CHILD, heartburn, constipation, psoriasis, "low blood"-caregiver not sure what is low, History of Any Multi-Drug Resistant Organisms: None Reported Past Surgical History: Joint Replacement, Orthopedic Surgery Additional Past Surgical History / Comment(s): contracture release in groin area, rt hip replacement, partial left hip replacement,growth removed rt knee, Past Anesthesia/Blood Transfusion Reactions: Family History of Problems w/ Anesthesia Additional Past Anesthesia/Blood Transfusion Reaction / Comment(s): mother had issues w/waking up from anesthesia Past Psychological History: Depression Smoking Status: Never smoker Past Alcohol Use History: Rare Past Drug Use History: None Reported - Past Family History Mother Family Medical History: No Reported History General Exam Limitations: no limitations General appearance: alert, in no apparent distress Head exam: Present: atraumatic, normocephalic Eye exam: Present: normal appearance, PERRL Respiratory exam: Present: normal lung sounds bilaterally. Absent: respiratory distress Cardiovascular Exam: Present: regular rate, normal rhythm GI/Abdominal exam: Absent: distended, tenderness Course Vital Signs 09/07/24 13:09 Temperature 97.6 F Pulse Rate 110 H Respiratory 18 Rate Blood Pressure 153/70 O2 Sat by Pulse 98 Oximetry Medical Decision Making - Medical Decision Making Was pt. sent in by a medical professional or institution (NICOLAS Martins, REFRACTORY MANAGER, urgent care, hospital, or fci...) When possible be specific @ -No Did you speak to anyone other than the patient for history (EMS, parent, family, police, friend...)? What history was obtained from this source @ -No Did you review nursing and triage notes (agree or disagree)? Why? @ -I reviewed and agree with nursing and triage notes Were old charts reviewed (outside hosp., previous admission, EMS record, old EKG, old radiological studies, urgent care reports/EKG's, fci records)? Report findings @ -No old charts were reviewed Differential Diagnosis: Gastritis, hyperglycemia, accidental steroid ingestion EKG interpreted by me (3pts min.). @ -As above X-rays interpreted by me (1pt min.). @ -None done CT interpreted by me (1pt min.). @ -None done U/S interpreted by me (1pt. min.). @ -None done What testing was considered but not performed or refused? (CT, X-rays, U/S, labs)? Why? @ -None What meds were considered but not given or refused? Why? @ -None Did you discuss the management of the patient with other professionals (professionals i.e. NICOLAS Martins, REFRACTORY MANAGER, lab, RT, psych nurse, professor of social work, real estate lawyer, teacher, employee service officer, pillowcase folder)? Give summary @ -[Case discussed with poison control, no recommendations at this time. Was smoking cessation discussed for >3mins.? @ -No Was critical care preformed (if so, how long)? @ -No Were there social determinants of health that impacted care today? How? (Homelessness, low income, unemployed, alcoholism, drug addiction, transp ortation, low edu. Level, literacy, decrease access to med. care, [place] [facility], rehab)? @ -No Was there de-escalation of care discussed even if they declined (Discuss DNR or withdrawal of care, Hospice)? DNR status @ -No What co-morbidities impacted this encounter? (DM, HTN, Smoking, COPD, CAD, Cancer, CVA, ARF, Chemo, Hep., AIDS, mental health diagnosis, sleep apnea, morbid obesity)? @Cerebral palsy Was patient admitted / discharged? Hospital course, mention meds given and route, prescriptions, significant lab abnormalities, going to OR and other pertinent info. @ -54-year-old female with accidental prednisone overdose 300 mg. Patient has no specific complaints. Given a dose of Protonix for possible gastric irritation and gastritis. Laboratory test including CBC and CMP are unremarkable. Undiagnosed new problem with uncertain prognosis? @ -No Drug Therapy requiring intensive monitoring for toxicity (Heparin, Nitro, Insulin, Cardizem)? @ -No Were any procedures done? @ -No Diagnosis/symptom? @Accidental prednisone overdose Acute, or Chronic, or Acute on Chronic? @Acute Uncomplicated (without systemic symptoms) or Complicated (systemic symptoms)? @ -Default Side effects of treatment? @ -No Exacerbation, Progression, or Severe Exacerbation? @ -No Poses a threat to life or bodily function? How? (Chest pain, [place], CA, pneumonia, PE, COPD, DKA, ARF, appy, cholecystitis, CVA, Diverticulitis, Homicidal, Suicidal, threat to staff... and all critical care pts) @ -No - Lab Data Result diagrams: 09/07/24 13:42 09/07/24 13:42 Lab Results 09/07/24 09/07/24 Range/Units 13:42 13:42 WBC 12.1 H (3.8-10.6) k/uL RBC 4.40 (3.80-5.40) m/uL Hgb 13.4 (11.4-16.0) gm/dL Hct 40.7 (34.0-46.0) % MCV 92.6 (80.0-100.0) fL MCH 30.4 (25.0-35.0) pg MCHC 32.9 (31.0-37.0) g/dL RDW 13.1 (11.5-15.5) % Plt Count 478 H (150-450) k/uL MPV 7.7 Neutrophils % 86 % Lymphocytes % 10 % Monocytes % 3 % Eosinophils % 0 % Basophils % 0 % Neutrophils # 10.5 H (1.3-7.7) k/uL Lymphocytes # 1.2 (1.0-4.8) k/uL Monocytes # 0.4 (0-1.0) k/uL Eosinophils # 0.0 (0-0.7) k/uL Basophils # 0.0 (0-0.2) k/uL Sodium 134 L (137-145) mmol/L Potassium 5.2 H (3.5-5.1) mmol/L Chloride 101 (98-107) mmol/L Carbon Dioxide 28 (22-30) mmol/L Anion Gap 5 mmol/L BUN 15 (7-17) mg/dL Creatinine 0.65 (0.52-1.04) mg/dL Est GFR (CKD-EPI)AfAm >90 (>60 ml/min/1.73 sqM) Est GFR (CKD-EPI)NonAf >90 (>60 ml/min/1.73 sqM) Glucose 109 H (74-99) mg/dL Calcium 9.8 (8.4-10.2) mg/dL Total Bilirubin 0.3 (0.2-1.3) mg/dL AST 105 H (14-36) U/L ALT 58 H (4-34) U/L Alkaline Phosphatase 69 (38-126) U/L Total Protein 7.1 (6.3-8.2) g/dL Albumin 4.0 (3.5-5.0) g/dL Disposition Clinical Impression: Accidental drug overdose Disposition: HOME SELF-CARE Condition: Fair Instructions (If sedation given, give patient instructions): Adult Overdose (ED) Is patient prescribed a controlled substance at d/c from ED?: No Referrals: Alondra Silva DO [Primary Care Provider] - 1-2 days Time of Disposition: 14:30
[2024-09-07 13:58] LABS: Basophils % (A) 0 %; Eosinophils % (A) 0 %; HCT 40.7 % (34.0-46.0); HGB 13.4 gm/dL (11.4-16.0); Lymphocytes # (A) 1.2 k/uL (1.0-4.8); Lymphocytes % (A) 10 %; MCH 30.4 pg (25.0-35.0); MCHC 32.9 g/dL (31.0-37.0); MCV 92.6 fL (80.0-100.0); Mean Platelet Volume 7.7; Monocytes # (A) 0.4 k/uL (0-1.0); Monocytes % (A) 3 %; Neutrophils # (A) 10.5 k/uL (1.3-7.7); Neutrophils % (A) 86 %; Platelet Count 478 k/uL (150-450); RDW 13.1 % (11.5-15.5); WBC 12.1 k/uL (3.8-10.6)
[2024-09-07 14:19] LABS: ALT 58 U/L (4-34); AST 105 U/L (14-36); African American GFR (CKD) >90 (>60 ml/min/1.73 sqM); Alkaline Phosphatase 69 U/L (38-126); Anion Gap 5 mmol/L; Blood Urea Nitrogen 15 mg/dL (7-17); Calcium 9.8 mg/dL (8.4-10.2); Carbon Dioxide 28 mmol/L (22-30); Chloride 101 mmol/L (98-107); Glucose 109 mg/dL (74-99); Non-African American GFR(CKD) >90 (>60 ml/min/1.73 sqM); Potassium 5.2 mmol/L (3.5-5.1); Sodium 134 mmol/L (137-145); Total Bilirubin 0.3 mg/dL (0.2-1.3); Total Protein 7.1 g/dL (6.3-8.2)
[2024-09-07 15:04] VITALS: BP 162/89; PULSE 77
== END 2024-09-07 15:04 | disposition home or self-care (01) ==
LOC: EC 13:06
DX: T38.0X1A Poisoning by glucocorticoids and synthetic analogues, accidental (unintentional), initial encounter (principal); G80.9 Cerebral palsy, unspecified
CPT/HCPCS: 99284; 36415; 80053; 85025; 96374; J2470